=== PATIENT | male | born 1990 | race African-American/Black ===

== ENCOUNTER 2019-12-01 10:51 | Emergency (ER) | payer OTHER ==
[2019-12-01 11:04] VITALS: BP 145/84; RESP 18; TEMP 100.1
[2019-12-01] MEDS ORDERED: SODIUM CHLORIDE 0.9% 1,000 ML IV ONE (11:29)
[2019-12-01] MEDS ORDERED: ACETAMINOPHEN TAB 500 MG TAB PO STA (11:29)
[2019-12-01] MEDS ORDERED: SODIUM CHLORIDE 0.9% 500 ML 500 ML IV ONE (11:29)
[2019-12-01] MEDS ORDERED: LORazepam 2 MG/ML INJ IV STA (11:38)
--- NOTE | 2019-12-01 12:02 | XR ---
EXAMINATION TYPE: XR hand complete RT , 3 VIEWS DATE OF EXAM ORDERED: 12/01/2019 HISTORY: Hand pain. COMPARISON: None. FINDINGS: The IMPRESSION: NO ACUTE OSSEOUS LESION.
[2019-12-01 13:06] LABS: ALT 17 U/L (4-49); AST 35 U/L (17-59); African American GFR (CKD) >90 (>60 ml/min/1.73 sqM); Alcohol <10 mg/dL; Alkaline Phosphatase 118 U/L (38-126); Anion Gap 13 mmol/L; Blood Urea Nitrogen 7 mg/dL (9-20); Calcium 10.3 mg/dL (8.4-10.2); Carbon Dioxide 24 mmol/L (22-30); Chloride 101 mmol/L (98-107); Creatine Kinase 503 U/L (55-170); Glucose 86 mg/dL (74-99); Non-African American GFR(CKD) >90 (>60 ml/min/1.73 sqM); Potassium 4.2 mmol/L (3.5-5.1); Sodium 138 mmol/L (137-145); Total Bilirubin 0.8 mg/dL (0.2-1.3); Total Protein 8.2 g/dL (6.3-8.2)
[2019-12-01 13:08] LABS: Basophils % (A) 0 %; Eosinophils # (A) 0.1 k/uL (0-0.7); Eosinophils % (A) 1 %; HCT 47.5 % (39.0-53.0); HGB 15.5 gm/dL (13.0-17.5); Lymphocytes # (A) 2.3 k/uL (1.0-4.8); Lymphocytes % (A) 23 %; MCH 32.6 pg (25.0-35.0); MCHC 32.7 g/dL (31.0-37.0); MCV 99.7 fL (80.0-100.0); Macrocytosis Slight; Mean Platelet Volume 7.3; Monocytes # (A) 0.6 k/uL (0-1.0); Monocytes % (A) 6 %; Neutrophils # (A) 6.9 k/uL (1.3-7.7); Neutrophils % (A) 68 %; Platelet Count 380 k/uL (150-450); RBC 4.76 m/uL (4.30-5.90); RDW 14.1 % (11.5-15.5); WBC 10.1 k/uL (3.8-10.6)
--- NOTE | 2019-12-01 13:29 | XR ---
EXAMINATION TYPE: XR chest 2V DATE OF EXAM ORDERED: 12/01/2019 HISTORY: Hypoxia; fever. REFERENCE: None. FINDINGS: The lungs are clear. Pleural spaces are clear. Heart size is normal. IMPRESSION: NORMAL CHEST.
--- NOTE | 2019-12-01 14:04 | ED ---
General Adult HPI - General Source: patient Mode of arrival: ambulatory Limitations: no limitations <Tonia Almonte - Last Filed: 12/01/19 15:09> <Irena Mai - Last Filed: 12/02/19 01:15> - General Chief complaint: Recheck/Abnormal Lab/Rx Stated complaint: arm pain Time Seen by Provider: 12/01/19 11:08 - History of Present Illness Initial comments: 29-year-old male patient presents to the emergency department today for evaluation of body aches and right hand pain. Upon arrival patient is acting bizarre and threatening staff. He exhibits flight of ideas. It is difficult to obtain information from him. Patient believes that his right hand may be broken. States he is having difficulty making a fist. He is also reporting body aches and feels ill. He is requesting a computed tomography scan of his entire body. He denies any known fever or chills. Denies any cough or congestion. Denies any rash. He is unsure of any recent injuries. Patient denies any recent rash, shortness of breath, chest pain, abdominal pain, nausea, vomiting, diarrhea, constipation, back pain, numbness, tingling, dizziness, weakness, hematuria, dysuria, urinary urgency, urinary frequency, headache, visual changes, or any other complaints. (Tonia Almonte) - Related Data Home Medications Medication Instructions Recorded Confirmed ARIPiprazole [Abilify] 50 mg INJ QMONTH 01/13/15 01/13/15 Zolpidem Tartrate [Ambien] 5 mg PO HS 01/13/15 01/13/15 clonazePAM [KlonoPIN] 1 mg PO BID 01/13/15 01/13/15 Allergies Allergy/AdvReac Type Severity Reaction Status Date / Time No Known Allergies Allergy Verified 12/01/19 11:04 Review of Systems ROS Other: All systems not noted in ROS Statement are negative. <Tonia Almonte - Last Filed: 12/01/19 15:09> ROS Other: All systems not noted in ROS Statement are negative. <Irena Mai - Last Filed: 12/02/19 01:15> ROS Statement: Those systems with pertinent positive or pertinent negative responses have been documented in the HPI. Past Medical History Additional Past Medical History / Comment(s): depression History of Any Multi-Drug Resistant Organisms: None Reported Additional Past Surgical History / Comment(s): left hand Past Psychological History: Depression, Schizoaffective Disorder, Schizophrenia Smoking Status: Current every day smoker Past Alcohol Use History: Heavy Past Drug Use History: None Reported <Tonia Almonte - Last Filed: 12/01/19 15:09> General Exam Limitations: no limitations General appearance: alert, in no apparent distress, other (This is a well- developed, well-nourished adult male patient in no acute distress. Vital signs upon presentation are temperature 100.1F, pulse 107, respirations 18, blood pressure 145/84, pulse ox 94% on room air.) Eye exam: Present: normal appearance, PERRL, EOMI. Absent: scleral icterus, conjunctival injection, periorbital swelling ENT exam: Present: normal exam, normal oropharynx, mucous membranes moist Respiratory exam: Present: normal lung sounds bilaterally. Absent: respiratory distress, wheezes, rales, rhonchi, stridor Cardiovascular Exam: Present: regular rate, normal rhythm, normal heart sounds. Absent: systolic murmur, diastolic murmur, rubs, gallop, clicks GI/Abdominal exam: Present: soft, normal bowel sounds. Absent: distended, tenderness, guarding, rebound, rigid Neurological exam: Present: alert, oriented X3, CN II-XII intact Psychiatric exam: Present: normal affect, normal mood Skin exam: Present: warm, dry, intact, normal color. Absent: rash <Tonia Almonte - Last Filed: 12/01/19 15:09> Course Vital Signs 12/01/19 12/01/19 10:59 13:46 Temperature 100.1 F H Pulse Rate 107 H 89 Respiratory 18 18 Rate Blood Pressure 145/84 O2 Sat by Pulse 94 L 95 Oximetry Medical Decision Making - Lab Data Result diagrams: 12/01/19 12:25 12/01/19 12:25 - Radiology Data Radiology results: report reviewed, image reviewed <Tonia Almonte - Last Filed: 12/01/19 15:09> - Lab Data Result diagrams: 12/01/19 12:25 12/01/19 12:25 <Irena Mai - Last Filed: 12/02/19 01:15> - Medical Decision Making 29-year-old male patient presented to the emergency department for evaluation. Patient was behaving bizarrely and exhibiting flight of ideas. Was difficult obtaining information from him. He does admit to experiencing with street drugs and drinking alcohol. Physical examination was relatively unremarkable. Lungs are clear to auscultation with good air movement. He is having no difficulty breathing. Labs reviewed and are unremarkable. Drug screen was positive for cocaine and marijuana. Patient was seen and evaluated by psychiatric services. He was given outpatient follow-up and did develop a safety plan. He will be discharged follow-up with his primary care physician and outpatient mental health services as directed. Return parameters were discussed in detail. He verbalizes understanding and agrees with this plan. (Tonia Almonte) I was available for consultation in the emergency department. The history and physical exam were done by the midlevel provider. I was consulted for this patients care. I reviewed the case with the midlevel provider and based on their presentation of the patient, I agree with the assessment, medical decision making and plan of care as documented. Chart was dictated using [employer] dictation software. Attempts were made to correct any dictation errors however some typographical errors may persist. Patient was seen during a national state of emergency due to the Covid-19 pandemic. (Irena Mai) - Lab Data Lab Results 12/01/19 12/01/19 12/01/19 Range/Units 12:25 12:25 12:25 WBC 10.1 (3.8-10.6) k/uL RBC 4.76 (4.30-5.90) m/uL Hgb 15.5 (13.0-17.5) gm/dL Hct 47.5 (39.0-53.0) % MCV 99.7 (80.0-100.0) fL MCH 32.6 (25.0-35.0) pg MCHC 32.7 (31.0-37.0) g/dL RDW 14.1 (11.5-15.5) % Plt Count 380 (150-450) k/uL Neutrophils % 68 % Lymphocytes % 23 % Monocytes % 6 % Eosinophils % 1 % Basophils % 0 % Neutrophils # 6.9 (1.3-7.7) k/uL Lymphocytes # 2.3 (1.0-4.8) k/uL Monocytes # 0.6 (0-1.0) k/uL Eosinophils # 0.1 (0-0.7) k/uL Basophils # 0.0 (0-0.2) k/uL Macrocytosis Slight Sodium 138 (137-145) mmol/L Potassium 4.2 (3.5-5.1) mmol/L Chloride 101 (98-107) mmol/L Carbon Dioxide 24 (22-30) mmol/L Anion Gap 13 mmol/L BUN 7 L (9-20) mg/dL Creatinine 1.03 (0.66-1.25) mg/dL Est GFR (CKD-EPI)AfAm >90 (>60 ml/min/1.73 sqM) Est GFR (CKD-EPI)NonAf >90 (>60 ml/min/1.73 sqM) Glucose 86 (74-99) mg/dL Plasma Lactic Acid Tarun 1.3 (0.7-2.0) mmol/L Calcium 10.3 H (8.4-10.2) mg/dL Total Bilirubin 0.8 (0.2-1.3) mg/dL AST 35 (17-59) U/L ALT 17 (4-49) U/L Alkaline Phosphatase 118 (38-126) U/L Creatine Kinase 503 H (55-170) U/L Total Protein 8.2 (6.3-8.2) g/dL Albumin 5.0 (3.5-5.0) g/dL Urine Color Urine Appearance (Clear) Urine pH (5.0-8.0) Ur Specific [place] (1.001-1.035) Urine Protein (Negative) Urine Glucose (UA) (Negative) Urine Ketones (Negative) Urine Blood (Negative) Urine Nitrite (Negative) Urine Bilirubin (Negative) Urine Urobilinogen (<2.0) mg/dL Ur Leukocyte Esterase (Negative) Urine RBC (0-5) /hpf Urine WBC (0-5) /hpf Ur Squamous Epith Cells (0-4) /hpf Urine Mucus (None) /hpf Urine Opiates Screen (NotDetected) Ur Oxycodone Screen (NotDetected) Urine Methadone Screen (NotDetected) Ur Propoxyphene Screen (NotDetected) Ur Barbiturates Screen (NotDetected) U Tricyclic Antidepress (NotDetected) Ur Phencyclidine Scrn (NotDetected) Ur Amphetamines Screen (NotDetected) U Methamphetamines Scrn (NotDetected) U Benzodiazepines Scrn (NotDetected) Urine Cocaine Screen (NotDetected) U Marijuana (THC) Screen (NotDetected) Serum Alcohol <10 mg/dL 12/01/19 Range/Units 14:08 WBC (3.8-10.6) k/uL RBC (4.30-5.90) m/uL Hgb (13.0-17.5) gm/dL Hct (39.0-53.0) % MCV (80.0-100.0) fL MCH (25.0-35.0) pg MCHC (31.0-37.0) g/dL RDW (11.5-15.5) % Plt Count (150-450) k/uL Neutrophils % % Lymphocytes % % Monocytes % % Eosinophils % % Basophils % % Neutrophils # (1.3-7.7) k/uL Lymphocytes # (1.0-4.8) k/uL Monocytes # (0-1.0) k/uL Eosinophils # (0-0.7) k/uL Basophils # (0-0.2) k/uL Macrocytosis Sodium (137-145) mmol/L Potassium (3.5-5.1) mmol/L Chloride (98-107) mmol/L Carbon Dioxide (22-30) mmol/L Anion Gap mmol/L BUN (9-20) mg/dL Creatinine (0.66-1.25) mg/dL Est GFR (CKD-EPI)AfAm (>60 ml/min/1.73 sqM) Est GFR (CKD-EPI)NonAf (>60 ml/min/1.73 sqM) Glucose (74-99) mg/dL Plasma Lactic Acid [place] (0.7-2.0) mmol/L Calcium (8.4-10.2) mg/dL Total Bilirubin (0.2-1.3) mg/dL AST (17-59) U/L ALT (4-49) U/L Alkaline Phosphatase (38-126) U/L Creatine Kinase (55-170) U/L Total Protein (6.3-8.2) g/dL Albumin (3.5-5.0) g/dL Urine Color Yellow Urine Appearance Clear (Clear) Urine pH 6.0 (5.0-8.0) Ur Specific [place] 1.027 (1.001-1.035) Urine Protein 1+ H (Negative) Urine Glucose (UA) Negative (Negative) Urine Ketones 4+ H (Negative) Urine Blood Trace H (Negative) Urine Nitrite Negative (Negative) Urine Bilirubin Negative (Negative) Urine Urobilinogen <2.0 (<2.0) mg/dL Ur Leukocyte Esterase Small H (Negative) Urine RBC 8 H (0-5) /hpf Urine WBC 11 H (0-5) /hpf Ur Squamous Epith Cells <1 (0-4) /hpf Urine Mucus Moderate H (None) /hpf Urine Opiates Screen Not Detected (NotDetected) Ur Oxycodone Screen Not Detected (NotDetected) Urine Methadone Screen Not Detected (NotDetected) Ur Propoxyphene Screen Not Detected (NotDetected) Ur Barbiturates Screen Not Detected (NotDetected) U Tricyclic Antidepress Detected H (NotDetected) Ur Phencyclidine Scrn Not Detected (NotDetected) Ur Amphetamines Screen Not Detected (NotDetected) U Methamphetamines Scrn Not Detected (NotDetected) U Benzodiazepines Scrn Not Detected (NotDetected) Urine Cocaine Screen Detected H (NotDetected) U Marijuana (THC) Screen Detected H (NotDetected) Serum Alcohol mg/dL - Radiology Data Two-view x-ray of the chest is obtained. Report was reviewed in its entirety. Impression by Dr. Anderson. 3 views of the right hand were obtained. Report was reviewed in its entirety. Impression by Dr. Anderson shows no acute osseous lesion. (Tonia Almonte) Disposition Is patient prescribed a controlled substance at d/c from ED?: No Time of Disposition: 14:04 <Tonia Almonte - Last Filed: 12/01/19 15:09> <Irena Mai - Last Filed: 12/02/19 01:15> Clinical Impression: Fever, Body aches, Right hand pain Disposition: HOME SELF-CARE Condition: Good Instructions (If sedation given, give patient instructions): Fever in Adults (ED), Schizoaffective Disorder (ED) Additional Instructions: Apply ice to the right hand. Follow up with your primary care physician for recheck in 1-2 days. Return to the emergency department immediately for any new, worsening, or concerning symptoms. Referrals: None,Stated [Primary Care Provider] - 1-2 days
[2019-12-01 14:31] LABS: Appearance,Urine Clear (Clear); Bilirubin,Urine Negative (Negative); Blood,Urine Trace (Negative); Color,Urine Yellow; Glucose,Urine (UA) Negative (Negative); Ketones,Urine 4+ (Negative); Leukocyte Esterase,Urine Small (Negative); Mucus,Urine Moderate /hpf; Nitrite,Urine Negative (Negative); Protein,Urine 1+ (Negative); RBC,Urine 8 /hpf (0-5); Specific Gravity,Urine 1.027 (1.001-1.035); Squamous Epithelial Cell,Urine <1 /hpf (0-4); Urobilinogen,Urine <2.0 mg/dL (<2.0); WBC,Urine 11 /hpf (0-5)
[2019-12-01 14:50] LABS: Amphetamine Screen,Urine Not Detected (NotDetected); Barbiturate Screen,Urine Not Detected (NotDetected); Benzodiazepines Screen,Urine Not Detected (NotDetected); Cocaine Screen,Urine Detected (NotDetected); Methadone Screen, Urine Not Detected (NotDetected); Opiate Screen,Urine Not Detected (NotDetected); Oxycodone Screen, Urine Not Detected (NotDetected); Phencyclidine Screen,Urine Not Detected (NotDetected); Tricyclic Antidepressant,Urine Detected (NotDetected); Urn Cannabinoid Scrn Detected (NotDetected)
[2019-12-01 15:23] VITALS: PULSE 89
== END 2019-12-01 14:40 | disposition home or self-care (01) ==
LOC: EC 10:51
DX: M79.641 Pain in right hand (principal); R50.9 Fever, unspecified; F25.1 Schizoaffective disorder, depressive type; F17.200 Nicotine dependence, unspecified, uncomplicated; Z79.899 Other long term (current) drug therapy; Z53.29 Procedure and treatment not carried out because of patient's decision for other reasons
CPT/HCPCS: 36415; 80053; 82550; 83605; 85025; 81001; 87040; 80306; 87086; 73130; 71046; 99283; 96360; G0480; U0003; 80320

== ENCOUNTER 2019-12-07 15:48 | Emergency (ER) | payer OTHER ==
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
[2019-12-07 16:01] VITALS: BP 128/94; PULSE 87; RESP 16; TEMP 99.1
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
[2019-12-07] MEDS ORDERED: ACET/COD 300 MG/30 MG STARTER PACK 6 TAB BTL PO STA (16:48)
[2019-12-07] MEDS ORDERED: IBUPROFEN 600 MG STARTER PACK 4 TAB BTL PO STA (16:48)
== END 2019-12-07 17:05 | disposition home or self-care (01) ==
LOC: EC 15:48
DX: S00.83XA Contusion of other part of head, initial encounter (principal); T74.11XA Adult physical abuse, confirmed, initial encounter; F32.9 Major depressive disorder, single episode, unspecified; F25.9 Schizoaffective disorder, unspecified; F17.200 Nicotine dependence, unspecified, uncomplicated; Z79.899 Other long term (current) drug therapy; Y92.89 Other specified places as the place of occurrence of the external cause; Y07.9 Unspecified perpetrator of maltreatment and neglect
CPT/HCPCS: 70450; 70486; 72125; 99284

== ENCOUNTER 2022-09-20 21:22 | Emergency (ER) | payer OTHER ==
[2022-09-20 22:08] VITALS: BP 152/96; PULSE 77; RESP 20; TEMP 98.2
[2022-09-20] MEDS ORDERED: KETOROLAC 15 MG/ML 1 ML VIAL IM STA (22:19)
[2022-09-20] MEDS ORDERED: PENICILLIN V POTASSIUM 250 MG TAB PO STA (22:19)
--- NOTE | 2022-09-20 22:22 | ED ---
ENT HPI - General Chief complaint: Dental/Oral Stated complaint: Dental pain Time Seen by Provider: 09/20/22 22:12 Source: patient Mode of arrival: ambulatory Limitations: no limitations - History of Present Illness Initial comments: Patient is a 32-year-old male presenting with chief complaint of dental pain. Patient has known dental fracture to the left lower side. Pain has been increasing over several weeks. Patient is currently homeless and going between several homeless shelters. No difficulty swallowing, nausea, vomiting, headache, neck pain, difficulty breathing. Patient also admits to bilateral feet pain, states it is due to frequent walking due to this housing situation. No numbness, tingling, weakness, injury. - Related Data Home Medications Medication Instructions Recorded Confirmed ARIPiprazole [Abilify] 50 mg INJ QMONTH 01/13/15 01/13/15 Zolpidem Tartrate [Ambien] 5 mg PO HS 01/13/15 01/13/15 clonazePAM [KlonoPIN] 1 mg PO BID 01/13/15 01/13/15 Previous Rx's Medication Instructions Recorded Ibuprofen [Motrin] 400 mg PO Q6HR PRN #20 tab 09/20/22 Penicillin V Potassium [Pen Vee K] 500 mg PO QID 7 Days #28 tablet 09/20/22 Allergies Allergy/AdvReac Type Severity Reaction Status Date / Time aripiprazole [From Abilify] AdvReac Unknown Verified 09/20/22 22:09 haloperidol [From Haldol] AdvReac Unknown Verified 09/20/22 22:09 paliperidone [From Invega] AdvReac Unknown Verified 09/20/22 22:09 Review of Systems ROS Statement: Those systems with pertinent positive or pertinent negative responses have been documented in the HPI. ROS Other: All systems not noted in ROS Statement are negative. Past Medical History Additional Past Medical History / Comment(s): depression, former alcoholic History of Any Multi-Drug Resistant Organisms: None Reported Additional Past Surgical History / Comment(s): left hand Past Psychological History: Depression, Schizoaffective Disorder, Schizophrenia Smoking Status: Former smoker Past Alcohol Use History: None Reported Past Drug Use History: None Reported General Exam Limitations: no limitations General appearance: alert, in no apparent distress Head exam: Present: atraumatic, normocephalic, normal inspection Eye exam: Present: normal appearance, EOMI. Absent: periorbital swelling Expanded Mouth exam: Present: normal external inspection, tongue normal. Absent: drooling, trismus, muffled voice Teeth exam: Present: fractured tooth # Throat exam: normal inspection Neck exam: Present: normal inspection, full ROM Respiratory exam: Present: normal lung sounds bilaterally. Absent: respiratory distress, wheezes, rales, rhonchi, stridor Cardiovascular Exam: Present: regular rate, normal rhythm, normal heart sounds. Absent: systolic murmur, diastolic murmur, rubs, gallop, clicks Neurological exam: Present: alert, oriented X3, CN II-XII intact Psychiatric exam: Present: normal affect, normal mood Skin exam: Present: warm, dry, intact, normal color. Absent: rash Course Vital Signs 09/20/22 21:59 Temperature 98.2 F Pulse Rate 77 Respiratory 20 Rate Blood Pressure 152/96 O2 Sat by Pulse 98 Oximetry Medical Decision Making - Medical Decision Making Was pt. sent in by a medical professional or institution (, PA, ENVIRONMENTAL DIRECTOR, urgent care, hospital, or longterm...) When possible be specific @ -No Did you speak to anyone other than the patient for history (EMS, parent, family, police, friend...)? What history was obtained from this source @ -No Did you review nursing and triage notes (agree or disagree)? Why? @ -I reviewed and agree with nursing and triage notes Were old charts reviewed (outside hosp., previous admission, EMS record, old EKG, old radiological studies, urgent care reports/EKG's, longterm records)? Report findings @ -No old charts were reviewed Differential Diagnosis (chest pain, altered mental status, abdominal pain women, abdominal pain men, vaginal bleeding, weakness, fever, dyspnea, syncope, headache, dizziness, GI bleed, back pain, seizure, CVA, palpatations, mental health, musculoskeletal)? @ -Differential includes toothache, dental abscess, Cesar's angina, this is not an all inclusive list EKG interpreted by me (3pts min.). @ -As above X-rays interpreted by me (1pt min.). @ -None done CT interpreted by me (1pt min.). @ -None done U/S interpreted by me (1pt. min.). @ -None done What testing was considered but not performed or refused? (CT, X-rays, U/S, labs)? Why? @ -None What meds were considered but not given or refused? Why? @ -None Did you discuss the management of the patient with other professionals (professionals i.e. , PA, ENVIRONMENTAL DIRECTOR, lab, RT, psych nurse, social media marketer, dedenter, teacher, police commanding officer, case sealer)? Give summary @ -No Was smoking cessation discussed for >3mins.? @ -No Was critical care preformed (if so, how long)? @ -No Were there social determinants of health that impacted care today? How? (Homelessness, low income, unemployed, alcoholism, drug addiction, transportation, low edu. Level, literacy, decrease access to med. care, snf, rehab)? @ -Homelessness Was there de-escalation of care discussed even if they declined (Discuss DNR or withdrawal of care, Hospice)? DNR status @ -No What co-morbidities impacted this encounter? (DM, HTN, Smoking, COPD, CAD, Cancer, CVA, ARF, Chemo, Hep., AIDS, mental health diagnosis, sleep apnea, morbid obesity)? @ -None Was patient admitted / discharged? Hospital course, mention meds given and route, prescriptions, significant lab abnormalities, going to OR and other pertinent info. @ -Patient is a 32-year-old male presenting with chief complaint of dental pain. Patient is currently homeless. On physical examination there is some dental tenderness on the left lower side. No trismus or brawny induration. Due to the patient's social situation we will treat for potential early abscess. Patient will be started on penicillin VK and is provided with a prescription for ibuprofen. He is instructed [facility]. Follow-up with PCP. Report back to ER with any new or worsening symptoms. Discussed return parameters and answered all questions. Patient conveyed verbal understanding and agreed to the plan. I discussed this case in detail with my attending Dr. Sorenson Undiagnosed new problem with uncertain prognosis? @ -No Drug Therapy requiring intensive monitoring for toxicity (Heparin, Nitro, Insulin, Cardizem)? @ -No Were any procedures done? @ -No Diagnosis/symptom? @ -Dental abscess Acute, or Chronic, or Acute on Chronic? @ -Acute Uncomplicated (without systemic symptoms) or Complicated (systemic symptoms)? @ -Uncomplicated Side effects of treatment? @ -No Exacerbation, Progression, or Severe Exacerbation? @ -No Poses a threat to life or bodily function? How? (Chest pain, [place], MT, pneumonia, PE, COPD, DKA, ARF, appy, cholecystitis, CVA, Diverticulitis, Homicidal, Suicidal, threat to staff... and all critical care pts) @ -No Disposition Clinical Impression: Dental abscess Disposition: HOME SELF-CARE Condition: Good Instructions (If sedation given, give patient instructions): Dental Abscess (ED) Additional Instructions: Follow-up with dental clinic. Report back to ER with any new or worsening symptoms. Please follow up with the [facility] dental clinic. [facility] [place] [address]. Phone number for new patients or [phone] for existing patients. Prescriptions: Ibuprofen [Motrin] 400 mg PO Q6HR PRN #20 tab PRN Reason: Pain Penicillin V Potassium [Pen Vee K] 500 mg PO QID 7 Days #28 tablet Is patient prescribed a controlled substance at d/c from ED?: No Referrals: None,Stated [REFERRING] - 1-2 days Time of Disposition: 22:22
== END 2022-09-20 23:07 | disposition home or self-care (01) ==
LOC: EC 21:22
DX: K04.7 Periapical abscess without sinus (principal); F20.9 Schizophrenia, unspecified; F32.A Depression, unspecified; Z87.891 Personal history of nicotine dependence; Z79.899 Other long term (current) drug therapy; Z59.00 Homelessness unspecified; Z88.8 Allergy status to other drugs, medicaments and biological substances
CPT/HCPCS: 99283; 96372; J1885

== ENCOUNTER 2022-09-21 19:42 | Emergency (ER) | payer OTHER ==
[2022-09-21] MEDS ORDERED: HYDROCORTISONE 1% CREAM 30 GM TUBE TOPICAL ONE (21:00)
[2022-09-21] MEDS ORDERED: methylPREDNISolone SOD SUCCI 125 MG/2 ML VIAL IM ONE (21:00)
--- NOTE | 2022-09-21 21:15 | ED ---
Skin/Abscess/FB HPI - General Chief complaint: Skin/Abscess/Foreign Body Stated complaint: allergic reaction Time Seen by Provider: 09/21/22 20:14 Source: patient, RN notes reviewed Mode of arrival: ambulatory Limitations: no limitations - History of Present Illness Initial comments: This is a 32-year-old male who presents to the emergency department for a rash that he attributes to pollen exposure and concerns of possible razor burn. This morning, he started to develop redness and tearing of his eyes and a rash and itching around his nose. States that this is what typically happens when he has an allergic reaction to pollen. Additionally, states that he just started using a razor believes that he is getting razor burn around his cheeks and marinelli. Denies any history razor burn. He was just evaluated here yesterday for dental pain and started on pen VK and ibuprofen. Denies any history of allergies to penicillin in the past. Additionally, he inquired about starting nicotine gum for nicotine dependence, states that he is unsure how to take this or where to find it. Denies any fevers, chills, sore throat, cough, dyspnea, chest pain, palpitations, abdominal pain, nausea, vomiting, diarrhea, back pain, or headaches. MD complaint: rash - Related Data Home Medications Medication Instructions Recorded Confirmed ARIPiprazole [Abilify] 50 mg INJ QMONTH 01/13/15 01/13/15 Zolpidem Tartrate [Ambien] 5 mg PO HS 01/13/15 01/13/15 clonazePAM [KlonoPIN] 1 mg PO BID 01/13/15 01/13/15 Previous Rx's Medication Instructions Recorded Ibuprofen [Motrin] 400 mg PO Q6HR PRN #20 tab 09/20/22 Penicillin V Potassium [Pen Vee K] 500 mg PO QID 7 Days #28 tablet 09/20/22 Ketotifen 0.025% Ophth Soln 1 drop BOTH EYES BID #5 ml 09/21/22 [Zaditor] Nicotine Gum (Polacrilex) 2 mg BUCCAL Q2H #100 piece gum 09/21/22 [Nicorette] Allergies Allergy/AdvReac Type Severity Reaction Status Date / Time aripiprazole [From Abilify] AdvReac Unknown Verified 09/21/22 20:04 haloperidol [From Haldol] AdvReac Unknown Verified 09/21/22 20:04 paliperidone [From Invega] AdvReac Unknown Verified 09/21/22 20:04 Review of Systems ROS Statement: Those systems with pertinent positive or pertinent negative responses have been documented in the HPI. ROS Other: All systems not noted in ROS Statement are negative. Past Medical History Additional Past Medical History / Comment(s): depression, former alcoholic History of Any Multi-Drug Resistant Organisms: None Reported Additional Past Surgical History / Comment(s): left hand Past Psychological History: Depression, Schizoaffective Disorder, Schizophrenia Smoking Status: Former smoker Past Alcohol Use History: None Reported Past Drug Use History: None Reported General Exam Limitations: no limitations General appearance: alert, in no apparent distress Head exam: Present: atraumatic, normocephalic, normal inspection Eye exam: Present: other (Mild bilateral conjunctival injection) Respiratory exam: Present: normal lung sounds bilaterally. Absent: respiratory distress, wheezes, rales, rhonchi, stridor Cardiovascular Exam: Present: regular rate, normal rhythm, normal heart sounds. Absent: systolic murmur, diastolic murmur, rubs, gallop, clicks Neurological exam: Present: alert, oriented X3, CN II-XII intact Psychiatric exam: Present: normal affect, normal mood Skin exam: Present: other (Mild bumps around the patient's cheeks and marinelli suggestive of a pseudofolliculitis barbae.) Course Vital Signs 09/21/22 09/21/22 20:04 21:34 Temperature 98.2 F 97.7 F Pulse Rate 106 H 97 Respiratory 16 17 Rate Blood Pressure 131/87 140/83 O2 Sat by Pulse 95 96 Oximetry Medical Decision Making - Medical Decision Making This is a 32-year-old male who presents to the emergency department for a rash. Was pt. sent in by a medical professional or institution? @ -No Did you speak to anyone other than the patient for history? @ -No Did you review nursing and triage notes? @ -Yes, and I agree, it is accurate with regards to the patient's symptoms. Were old charts reviewed? @ -No Differential Diagnosis? @ -Differential Rash: Roseola, measles, Lyme disease, erythema multiforme, cellulitis, toxic shock syndrome, Herson Iraj syndrome, Kawasaki disease, annette mountain spotted fever, contact dermatitis, allergic dermatitis, measles, mumps, rubella, varicella, meningococcal disease, drug reaction, coxsackievirus, This is not meant to be an all-inclusive list. What testing was considered but not performed? (CT, X-rays, U/S, labs)? Why? @ -None What meds were considered but not given? Why? @ -None Did you discuss the management of the patient with other professionals? @ -No Did you reconcile home meds? @ -No Was smoking cessation discussed for >3mins.? @ -I discussed smoking cessation for greater than 3 minutes. The risk of s moking were discussed with the patient including but not limited to risks of cancer, stroke, coronary artery disease and COPD. Also discussed with patient were multiple methods of quitting smoking. Lastly we discussed the financial cost of smoking. Was critical care preformed (if so, how long)? @ -No Were there social determinants of health that impacted care today? How? (Homelessness, low income, unemployed, alcoholism, drug addiction, transportation, low edu. Level, literacy, decrease access to med. care, correction, rehab)? @ -Patient is homeless, decreasing his access to healthcare and contributing to overall worsening health status. It is also difficult for him to find transportation and get to the pharmacy to strip picker his medication. Was there de-escalation of care discussed even if they declined? (Discuss DNR or withdrawal of care, Hospice)? @ -No What co-morbidities impacted this encounter? (DM, HTN, Smoking, COPD, CAD, Cancer, CVA, Hep., AIDS, mental health diagnosis, sleep apnea, morbid obesity)? @ -Tobacco use Was patient admitted / discharged? @ -Discharged. Physical examination consistent with allergic conjunctivitis and potential dermatitis on areas of the face. 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 He was given IM Solu- Medrol and hydrocortisone cream in the emergency department. Prescription for antihistamine eyedrops and Nicorette gum provided with dosing instructions reviewed. With regards to the gum, he is instructed to take 1 piece every 1-2 hours for 6 weeks, then every 2-4 hours for 3 weeks, followed by every 4-8 hours for 3 weeks, and then stop. He is advised to avoid having more than 24 pieces in a day. Instructed him to purchase this [id number] when he runs out of the prescription. He is also instructed to stop smoking when he starts to take this. With regards to the hydrocortisone cream, he is instructed to apply this 2-3 times daily to the affected areas on his face. He is also instructed to avoid using this for more than 5-7 days and to start using shaving cream or purchase an electric razor to reduce the risk of future recurrence. Undiagnosed new problem with uncertain prognosis? @ -None Drug Therapy requiring intensive monitoring for toxicity (Heparin, Nitro, Insulin, Cardizem)? @ -None Were any procedures done? @ -None Diagnosis/symptom? @ -Allergic conjunctivitis, pseudofolliculitis barbae Acute, or Chronic, or Acute on Chronic? @ -Acute Uncomplicated (without systemic symptoms) or Complicated (systemic symptoms)? @ -Uncomplicated Side effects of treatment? @ -None Exacerbation, Progression, or Severe Exacerbation] @ -Not applicable Poses a threat to life or bodily function? @ -No Diagnosis/symptom? @ -Nicotine dependence Acute, or Chronic, or Acute on Chronic? @ -Acute Uncomplicated (without systemic symptoms) or Complicated (systemic symptoms)? @ -Uncomplicated Side effects of treatment? @ -None Exacerbation, Progression, or Severe Exacerbation] @ -Stable Poses a threat to life or bodily function? @ -Yes, this increases risk for lung cancer, heart attacks, and strokes if he continues to smoke. Return precautions reviewed in depth, the patient is instructed to return to the emergency department with any new, worsening, or concerning symptoms. Patient verbalized understanding. This case was discussed in detail with the attending ED physician, Dr. Johnson. Presentation, findings, and treatment plan discussed in detail as well. Disposition Clinical Impression: Pseudofolliculitis barbae, Nicotine dependence, Allergic conjunctivitis Disposition: HOME SELF-CARE Instructions (If sedation given, give patient instructions): Nicotine (Into the mouth), Conjunctivitis (ED) Additional Instructions: Return to the emergency department with any new, worsening, or concerning symptoms. You will take the nicotine gum as 1 piece every 1-2 hours for 6 weeks (at least 9 pieces a day), then every 2-4 hours for 3 weeks, then every 4-8 hours for 3 weeks, then stop. Do not have more than 24 pieces a day. You can purchase this [id number] when you run out of the prescription. Make sure that you stop smoking when you start taking this. Use the eyedrops as one drop in each eye twice daily. You can apply the hydrocortisone cream around the marinelli and face twice daily to help with the bumps and itching. Follow up with your primary care provider in 1-2 days. Prescriptions: Nicotine Gum (Polacrilex) [Nicorette] 2 mg BUCCAL Q2H #100 piece gum Ketotifen 0.025% Ophth Soln [Zaditor] 1 drop BOTH EYES BID #5 ml Is patient prescribed a controlled substance at d/c from ED?: No Referrals: None,Stated [Primary Care Provider] - 1-2 days
[2022-09-21 21:34] VITALS: BP 140/83; PULSE 97; RESP 17; TEMP 97.7
== END 2022-09-21 21:34 | disposition home or self-care (01) ==
LOC: EC 19:42
DX: L73.1 Pseudofolliculitis barbae (principal); F17.290 Nicotine dependence, other tobacco product, uncomplicated; H10.13 Acute atopic conjunctivitis, bilateral; F32.A Depression, unspecified; Z88.8 Allergy status to other drugs, medicaments and biological substances; Z79.899 Other long term (current) drug therapy
CPT/HCPCS: 99283; 96372; J2930

== ENCOUNTER 2022-09-22 22:29 | Emergency (ER) | payer OTHER ==
[2022-09-22 22:48] VITALS: BP 151/89; PULSE 105; RESP 22; TEMP 98.2
[2022-09-22] MEDS ORDERED: KETOROLAC 15 MG/ML 1 ML VIAL IM STA (23:26)
[2022-09-22] MEDS ORDERED: HYDROcodone/APAP 5-325MG 1 EACH TAB PO STA (23:26)
--- NOTE | 2022-09-22 23:44 | ED ---
Upper Extremity HPI - General Chief Complaint: Extremity Injury, Upper Stated Complaint: R hand injury Time Seen by Provider: 09/22/22 22:34 Source: patient, RN notes reviewed Mode of arrival: ambulatory Limitations: no limitations - History of Present Illness Initial Comments: This is a 32-year-old male who presents to the emergency department for a right hand injury. Patient states that he got mad earlier today and punched a wall. His girlfriend just got a puppy and it ran away. States that he was unable to find it and he became frustrated and subsequently punched a brick wall. He has not taken anything for the pain. He is still able to move the hand, but states that it is painful. Denies any fevers, chills, sore throat, cough, dyspnea, chest pain, palpitations, abdominal pain, nausea, vomiting, diarrhea, back pain, or headaches. MD Complaint: Injury to:: right, hand - Related Data Home Medications Medication Instructions Recorded Confirmed ARIPiprazole [Abilify] 50 mg INJ QMONTH 01/13/15 01/13/15 Zolpidem Tartrate [Ambien] 5 mg PO HS 01/13/15 01/13/15 clonazePAM [KlonoPIN] 1 mg PO BID 01/13/15 01/13/15 Previous Rx's Medication Instructions Recorded Ibuprofen [Motrin] 400 mg PO Q6HR PRN #20 tab 09/20/22 Penicillin V Potassium [Pen Vee K] 500 mg PO QID 7 Days #28 tablet 09/20/22 Ketotifen 0.025% Ophth Soln 1 drop BOTH EYES BID #5 ml 09/21/22 [Zaditor] Nicotine Gum (Polacrilex) 2 mg BUCCAL Q2H #100 piece gum 09/21/22 [Nicorette] Allergies Allergy/AdvReac Type Severity Reaction Status Date / Time aripiprazole [From Abilify] AdvReac Unknown Verified 09/22/22 22:49 haloperidol [From Haldol] AdvReac Unknown Verified 09/22/22 22:49 paliperidone [From Invega] AdvReac Unknown Verified 09/22/22 22:49 Review of Systems ROS Statement: Those systems with pertinent positive or pertinent negative responses have been documented in the HPI. ROS Other: All systems not noted in ROS Statement are negative. Past Medical History Past Medical History: GERD/Reflux Additional Past Medical History / Comment(s): depression, former alcoholic History of Any Multi-Drug Resistant Organisms: None Reported Additional Past Surgical History / Comment(s): left hand Past Psychological History: Depression, Schizoaffective Disorder, Schizophrenia Smoking Status: Former smoker Past Alcohol Use History: None Reported Past Drug Use History: None Reported General Exam Limitations: no limitations General appearance: alert, in no apparent distress Head exam: Present: atraumatic, normocephalic, normal inspection Respiratory exam: Present: normal lung sounds bilaterally. Absent: respiratory distress, wheezes, rales, rhonchi, stridor Cardiovascular Exam: Present: regular rate, normal rhythm, normal heart sounds. Absent: systolic murmur, diastolic murmur, rubs, gallop, clicks Extremities exam: Present: other (Tenderness and minor swelling near the fourth MCP joint of the right hand. Full active and passive range of motion of all 5 digits.) Neurological exam: Present: alert, oriented X3, CN II-XII intact Psychiatric exam: Present: normal affect, normal mood Skin exam: Present: warm, dry, intact, normal color. Absent: rash Course Vital Signs 09/22/22 22:43 Temperature 98.2 F Pulse Rate 105 H Respiratory 22 Rate Blood Pressure 151/89 O2 Sat by Pulse 97 Oximetry Medical Decision Making - Medical Decision Making This is a 32-year-old male who presents to the emergency department for a right hand injury. Was pt. sent in by a medical professional or institution? @ -No Did you speak to anyone other than the patient for history? @ -No Did you review nursing and triage notes? @ -Yes, and I agree, it is accurate with regards to the patient's symptoms. Were old charts reviewed? @ -No Differential Diagnosis? @ -Differential hand pain/injury: Fracture, dislocation, contusion, this is not meant to be an all-inclusive list. X-rays interpreted by me (1pt min.)? @ -X-ray of the right hand obtained. My interpretation identifies no acute fractures. What testing was considered but not performed? (CT, X-rays, U/S, labs)? Why? @ -None What meds were considered but not given? Why? @ -None Did you discuss the management of the patient with other professionals? @ -No Did you reconcile home meds? @ -No Was smoking cessation discussed for >3mins.? @ -No Was critical care preformed (if so, how long)? @ -No Were there social determinants of health that impacted care today? How? (Homelessness, low income, unemployed, alcoholism, drug addiction, transportation, low edu. Level, literacy, decrease access to med. care, shelter, rehab)? @ -No Was there de-escalation of care discussed even if they declined? (Discuss DNR or withdrawal of care, Hospice)? @ -No What co-morbidities impacted this encounter? (DM, HTN, Smoking, COPD, CAD, Cancer, CVA, Hep., AIDS, mental health diagnosis, sleep apnea, morbid obesity)? @ -None Was patient admitted / discharged? @ -Discharged. X-ray of the right hand obtained revealing no acute injury. He does however have a chronic deformity of the right third metacarpal head. Patient given IM Toradol for pain relief. He inquired about a referral to orthopedics for unclear reasons. I did give him information for the local orthopedics office, and I advised that he will need to explain to them the reason for needing an appointment when he calls the office. He did also request a copy of his imaging, and a disc was made and given to the patient. He is instructed to alternate with ibuprofen and tylenol for pain relief and apply ice to the areas of pain for 10-15 minutes every 2-3 hours for the first 2-3 days followed by heat there afterwards. Undiagnosed new problem with uncertain prognosis? @ -None Drug Therapy requiring intensive monitoring for toxicity (Heparin, Nitro, Insulin, Cardizem)? @ -None Were any procedures done? @ -None Diagnosis/symptom? @ -Right hand injury Acute, or Chronic, or Acute on Chronic? @ -Acute Uncomplicated (without systemic symptoms) or Complicated (systemic symptoms)? @ -Uncomplicated Side effects of treatment? @ -None Exacerbation, Progression, or Severe Exacerbation] @ -Not applicable Poses a threat to life or bodily function? @ -No Return precautions reviewed in depth, the patient is instructed to return to the emergency department with any new, worsening, or concerning symptoms. Patient verbalized understanding. This case was discussed in detail with the attending ED physician, Dr. Maldonado. Presentation, findings, and treatment plan discussed in detail as well. - Radiology Data Radiology results: report reviewed, image reviewed Disposition Clinical Impression: Injury of right hand, Deformity of metacarpal bone Disposition: HOME SELF-CARE Instructions (If sedation given, give patient instructions): Hand Sprain (ED), Crush Injury (ED) Additional Instructions: Return to the emergency department with any new, worsening, or concerning symptoms. Alternate with ibuprofen and Tylenol as needed for pain relief. Apply ice for 10-15 minutes every 2-3 hours. Contact orthopedics as listed below for a follow-up appointment. Follow up with your primary care provider in 1-2 days. Is patient prescribed a controlled substance at d/c from ED?: No Referrals: None,Stated [Primary Care Provider] - 1-2 days Padilla Burton DO [Doctor of Osteopathic Medicine] - 1-2 days
--- NOTE | 2022-09-23 00:12 | XR ---
EXAMINATION TYPE: XR hand complete RT DATE OF EXAM: 09/22/2022 11:41 PM INDICATION: Patient age:Male; 32 years old; Reason for study: Injury; COMPARISON: 12/01/2019 TECHNIQUE: Frontal, lateral and oblique views of the right hand were obtained. FINDINGS: There is redemonstration of deformity of the third metacarpal head similar to 2019. No evid ence of new fracture involving the third digit. The osseous structures of the wrist appear intact. IMPRESSION: Right third metacarpal head injury with associated degeneration. No obvious acute fracture.
[2022-09-23] MEDS ORDERED: ACET/COD 300 MG/30 MG STARTER PACK 6 TAB BTL PO STA (00:20)
[2022-09-23] MEDS ORDERED: IBUPROFEN 600 MG STARTER PACK 4 TAB BTL PO STA (00:20)
== END 2022-09-23 00:31 | disposition home or self-care (01) ==
LOC: EC 22:29
DX: S69.91XA Unspecified injury of right wrist, hand and finger(s), initial encounter (principal); S09.90XA Unspecified injury of head, initial encounter; M21.941 Unspecified acquired deformity of hand, right hand; F32.A Depression, unspecified; Z88.6 Allergy status to analgesic agent; Z88.8 Allergy status to other drugs, medicaments and biological substances; Z87.891 Personal history of nicotine dependence; W22.8XXA Striking against or struck by other objects, initial encounter
CPT/HCPCS: 96372; 99283

== ENCOUNTER 2022-09-23 04:50 | Emergency (ER) | payer OTHER ==
[2022-09-23 05:10] VITALS: BP 141/89; PULSE 91; RESP 18; TEMP 97.9
[2022-09-23] MEDS ORDERED: MAG HYDROX/AL HYDROX/SIMETH 30 ML, HYOSCYAMINE ELIXIR 10 ML, LIDOCAINE VISCOUS 2% 10 ML PO STA ×3 (05:15)
--- NOTE | 2022-09-23 05:25 | ED ---
General Adult HPI - General Chief complaint: Abdominal Pain Stated complaint: acid reflux/burning in chest Time Seen by Provider: 09/23/22 04:51 Source: patient, RN notes reviewed, old records reviewed Mode of arrival: ambulatory Limitations: no limitations - History of Present Illness Initial comments: Patient is a 32-year-old male who has presented to the emergency department multiple times over the last few days for different complaints. Presents today complaining of acid reflux. Has a history of acid reflux. Endorses a burning sensation in his abdomen. States he had tomato sauce earlier which he believes is what caused it. Attempted use Tums at home with minimal improvement. Also attempted Pepto-Bismol. Presents for further evaluation at this time. Denies any nausea. Denies diarrhea. Denies any fevers, chills, cough, shortness of breath. Denies any other acute complaints. Has no history of cardiac disease. Presents for further evaluation at this time. - Related Data Home Medications Medication Instructions Recorded Confirmed ARIPiprazole [Abilify] 50 mg INJ QMONTH 01/13/15 01/13/15 Zolpidem Tartrate [Ambien] 5 mg PO HS 01/13/15 01/13/15 clonazePAM [KlonoPIN] 1 mg PO BID 01/13/15 01/13/15 Previous Rx's Medication Instructions Recorded Ibuprofen [Motrin] 400 mg PO Q6HR PRN #20 tab 09/20/22 Penicillin V Potassium [Pen Vee K] 500 mg PO QID 7 Days #28 tablet 09/20/22 Ketotifen 0.025% Ophth Soln 1 drop BOTH EYES BID #5 ml 09/21/22 [Zaditor] Nicotine Gum (Polacrilex) 2 mg BUCCAL Q2H #100 piece gum 09/21/22 [Nicorette] Famotidine [Pepcid] 10 mg PO DAILY 7 Days #7 tab 09/23/22 Allergies Allergy/AdvReac Type Severity Reaction Status Date / Time aripiprazole [From Abilify] AdvReac Unknown Verified 09/23/22 05:07 haloperidol [From Haldol] AdvReac Unknown Verified 09/23/22 05:07 paliperidone [From Invega] AdvReac Unknown Verified 09/23/22 05:07 Review of Systems ROS Statement: Those systems with pertinent positive or pertinent negative responses have been documented in the HPI. Review of Systems: CONST: Denies fever EYES: Denies blurry vision ENT: Denies nasal congestion C/V: Denies Chest pain RESP: Denies shortness of breath GI: Endorses acid reflux pain : Denies dysuria SKIN: Denies rash. MSK: Denies joint pain. NEURO: Denies headache ROS Other: All systems not noted in ROS Statement are negative. Past Medical History Past Medical History: GERD/Reflux Additional Past Medical History / Comment(s): depression, former alcoholic History of Any Multi-Drug Resistant Organisms: None Reported Additional Past Surgical History / Comment(s): left hand Past Psychological History: Depression, Schizoaffective Disorder, Schizophrenia Smoking Status: Former smoker Past Alcohol Use History: None Reported Past Drug Use History: None Reported General Exam - General Exam Comments Initial Comments: General: Appears in no acute distress. HEAD: Normal with no signs of head trauma. EYES: EOMI. ENT: Hearing grossly intact. RESPIRATORY: No respiratory distress. Equal breath sounds bilaterally. No re spiratory distress. C/V: Regular rate and rhythm. S1 and S2 auscultated. Peripheral pulses 2+ and intact throughout. ABD: Abdomen is nondistended. No pain on palpation. EXT: No obvious deformity. SKIN: No rashes or lesions observed on exposed skin. NEURO: Alert and oriented. Limitations: no limitations Course Vital Signs 09/23/22 05:07 Temperature 97.9 F Pulse Rate 91 Respiratory 18 Rate Blood Pressure 141/89 O2 Sat by Pulse 98 Oximetry Medical Decision Making - Medical Decision Making Was pt. sent in by a medical professional or institution (, PA, MANAGER EMERGENCY DEPARTMENT, urgent care, hospital, or halfway...) When possible be specific @ -No Did you speak to anyone other than the patient for history (EMS, parent, family, police, friend...)? What history was obtained from this source @ -No Did you review nursing and triage notes (agree or disagree)? Why? @ -I reviewed and agree with nursing and triage notes Were old charts reviewed (outside hosp., previous admission, EMS record, old EKG, old radiological studies, urgent care reports/EKG's, halfway records)? Report findings @ -No old charts were reviewed Differential Diagnosis (chest pain, altered mental status, abdominal pain women, abdominal pain men, vaginal bleeding, weakness, fever, dyspnea, syncope, headache, dizziness, GI bleed, back pain, seizure, CVA, palpatations, mental health, musculoskeletal)? @ -Acid reflux, pneumothorax, musculoskeletal pain, this list is not all- inclusive EKG interpreted by me (3pts min.). @ -As above X-rays interpreted by me (1pt min.). @ -Chest x-ray reveals no obvious acute cardiopulmonary process. CT interpreted by me (1pt min.). @ -None done U/S interpreted by me (1pt. min.). @ -None done What testing was considered but not performed or refused? (CT, X-rays, U/S, labs)? Why? @ -None What meds were considered but not given or refused? Why? @ -None Did you discuss the management of the patient with other professionals (professionals i.e. , PA, MANAGER EMERGENCY DEPARTMENT, lab, RT, psych nurse, social director, switchboard operator supervisor, teacher, sea air land officer, housing case manager)? Give summary @ -No Was smoking cessation discussed for >3mins.? @ -No Was critical care preformed (if so, how long)? @ -No Were there social determinants of health that impacted care today? How? (Homelessness, low income, unemployed, alcoholism, drug addiction, transportation, low edu. Level, literacy, decrease access to med. care, nursing home, rehab)? @ -No Was there de-escalation of care discussed even if they declined (Discuss DNR or withdrawal of care, Hospice)? DNR status @ -No What co-morbidities impacted this encounter? (DM, HTN, Smoking, COPD, CAD, Cancer, CVA, ARF, Chemo, Hep., AIDS, mental health diagnosis, sleep apnea, morbid obesity)? @ -None Was patient admitted / discharged? Hospital course, mention meds given and route, prescriptions, significant lab abnormalities, going to OR and other pertinent info. @ -Based on the patient's presentation and physical exam, presents complaining of acid reflux. Has a history of acid reflux. States is normal times and Pepto-Bismol are not improving his symptoms. Presents for further evaluation at this time. Vital signs are within acceptable limits. Discuss with him we will obtain screening EKG, chest x-ray and symptomatically treat him with a GI cocktail. He was in agreement this plan. Workup returned unremarkable. We discussed. Patient is feeling improved. He'll be discharged home at this time. We'll provide him with a prescription for Pepcid. I will provide the patient with a prescription for Pepcid. I instructed the patient to follow up with their PCP in the next 1-3 days. I provided contact information for follow up with GI. I explained that the patient should return to the emergency department if they experience any worsening symptoms. Strict return precautions were discussed with the patient. The patient expressed understanding of these instructions. I answered all questions that the patient had. The patient was discharged home in good condition with their prescriptions and follow up information. Undiagnosed new problem with uncertain prognosis? @ -No Drug Therapy requiring intensive monitoring for toxicity (Heparin, Nitro, Insulin, Cardizem)? @ -No Were any procedures done? @ -No Diagnosis/symptom? @ -GERD Acute, or Chronic, or Acute on Chronic? @ -Acute on chronic Uncomplicated (without systemic symptoms) or Complicated (systemic symptoms)? @ -Uncomplicated Side effects of treatment? @ -No Exacerbation, Progression, or Severe Exacerbation? @ -No Poses a threat to life or bodily function? How? (Chest pain, [place], CT, pneumonia, PE, COPD, DKA, ARF, appy, cholecystitis, CVA, Diverticulitis, Homicidal, Suicidal, threat to staff... and all critical care pts) @ -No - EKG Data -: EKG Interpreted by Me EKG Comments: 12-lead Electrocardiogram Interpretation Note EKG was reviewed and interpreted by myself. 12-lead ECG performed at 0536 is interpreted by me as revealing normal sinus rhythm at a rate of 82 beats per minute. [place] is normal. [place] interval is 155 ms, QRS durations 104 ms, QTc is 408 ms.. There were no ST or T wave abnormalities to suggest myocardial isc hemia or injury. R wave progression across the precordium was satisfactory. By my interpretation this EKG is non-diagnostic for acute ischemia. Disposition Clinical Impression: GERD (gastroesophageal reflux disease) Disposition: HOME SELF-CARE Condition: Good Instructions (If sedation given, give patient instructions): GERD (Gastroesophageal Reflux Disease) (ED) Prescriptions: Famotidine [Pepcid] 10 mg PO DAILY 7 Days #7 tab Is patient prescribed a controlled substance at d/c from ED?: No Referrals: None,Stated [REFERRING] - 1-2 days Time of Disposition: 06:31
--- NOTE | 2022-09-23 06:05 | XR ---
EXAMINATION TYPE: XR chest 1V portable DATE OF EXAM: 09/23/2022 COMPARISON: Chest x-ray December 01, 2019 HISTORY: Chest pain. TECHNIQUE: Single frontal view of the chest is obtained. FINDINGS: There is no suspicious new focal air space opacity, pleural effusion, or pneumothorax seen . The cardiac silhouette size is stable and within normal limits. The osseous structures are intac t. IMPRESSION: No acute process. No significant change from prior.
== END 2022-09-23 06:45 | disposition home or self-care (01) ==
LOC: EC 04:50
DX: K21.9 Gastro-esophageal reflux disease without esophagitis (principal); F32.A Depression, unspecified; Z87.891 Personal history of nicotine dependence; Z79.899 Other long term (current) drug therapy; Z88.8 Allergy status to other drugs, medicaments and biological substances; Z88.6 Allergy status to analgesic agent
CPT/HCPCS: 71045; 93005; 99284

== ENCOUNTER 2022-09-23 23:05 | Emergency (ER) | payer OTHER ==
[2022-09-24] MEDS ORDERED: LIDOCAINE 5% PATCH TOPICAL ONE (02:08)
[2022-09-24] MEDS ORDERED: KETOROLAC 15 MG/ML 1 ML VIAL IM STA (02:08)
--- NOTE | 2022-09-24 02:19 | ED ---
Back Pain HPI - General Chief Complaint: Back Pain/Injury Stated Complaint: Back Pain Time Seen by Provider: 09/24/22 01:50 Source: patient, RN notes reviewed Limitations: no limitations - History of Present Illness Initial Comments: This is a 32-year-old male who presents to the emergency department for back pain. When I went to evaluate the patient, he had all of the lights turned off in the room and he was sleeping heavily. When I first evaluated him, he had forgotten why he was here until I asked if he was experiencing back pain, which was what was listed in his triage information. States that this has been present for a "long time" and it is all over the back. Denies any injuries. Also denies any loss of bowel/bladder control or saddle anesthesia. The patient is homeless and this is his fifth visit in the last 3 days. States that he has been unable to get into a homeless longterm. Denies any fevers, chills, sore throat, cough, dyspnea, chest pain, palpitations, abdominal pain, nausea, vomiting, diarrhea, or headaches. MD Complaint: back pain - Related Data Home Medications Medication Instructions Recorded Confirmed ARIPiprazole [Abilify] 50 mg INJ QMONTH 01/13/15 01/13/15 Zolpidem Tartrate [Ambien] 5 mg PO HS 01/13/15 01/13/15 clonazePAM [KlonoPIN] 1 mg PO BID 01/13/15 01/13/15 Previous Rx's Medication Instructions Recorded Ibuprofen [Motrin] 400 mg PO Q6HR PRN #20 tab 09/20/22 Penicillin V Potassium [Pen Vee K] 500 mg PO QID 7 Days #28 tablet 09/20/22 Ketotifen 0.025% Ophth Soln 1 drop BOTH EYES BID #5 ml 09/21/22 [Zaditor] Nicotine Gum (Polacrilex) 2 mg BUCCAL Q2H #100 piece gum 09/21/22 [Nicorette] Famotidine [Pepcid] 10 mg PO DAILY 7 Days #7 tab 09/23/22 Allergies Allergy/AdvReac Type Severity Reaction Status Date / Time aripiprazole [From Abilify] AdvReac Unknown Verified 09/23/22 23:10 haloperidol [From Haldol] AdvReac Unknown Verified 09/23/22 23:10 paliperidone [From Invega] AdvReac Unknown Verified 09/23/22 23:10 Review of Systems ROS Statement: Those systems with pertinent positive or pertinent negative responses have been documented in the HPI. ROS Other: All systems not noted in ROS Statement are negative. Past Medical History Past Medical History: GERD/Reflux Additional Past Medical History / Comment(s): depression, former alcoholic History of Any Multi-Drug Resistant Organisms: None Reported Additional Past Surgical History / Comment(s): left hand Past Psychological History: Anxiety, Depression, Schizoaffective Disorder, Schizophrenia Smoking Status: Former smoker Past Alcohol Use History: None Reported Past Drug Use History: None Reported General Exam Limitations: no limitations General appearance: alert, in no apparent distress Head exam: Present: atraumatic, normocephalic, normal inspection Respiratory exam: Present: normal lung sounds bilaterally. Absent: respiratory distress, wheezes, rales, rhonchi, stridor Cardiovascular Exam: Present: regular rate, normal rhythm, normal heart sounds. Absent: systolic murmur, diastolic murmur, rubs, gallop, clicks Back exam: Present: normal inspection, full ROM, other (No step offs). Absent: tenderness Neurological exam: Present: alert, oriented X3, CN II-XII intact Psychiatric exam: Present: normal affect, normal mood Skin exam: Present: warm, dry, intact, normal color. Absent: rash Course Vital Signs 09/23/22 23:07 Temperature 98.2 F Pulse Rate 72 Respiratory 20 Rate Blood Pressure 130/76 O2 Sat by Pulse 98 Oximetry Medical Decision Making - Medical Decision Making This is a 32-year-old male who presents to the emergency department for back pain. Was pt. sent in by a medical professional or institution? @ -No Did you speak to anyone other than the patient for history? @ -No Did you review nursing and triage notes? @ -Yes, and I agree, it is accurate with regards to the patient's symptoms. Were old charts reviewed? @ -No Differential Diagnosis? @ -Differential Back Pain: Strain, zoster, cauda equina syndrome, epidural abscess, vertebral osteomyelitis, discitis, fracture, subluxation, disc herniation, DJD, spinal stenosis, dissection, AAA, pancreatitis, peptic ulcer disease, pyelonephritis, kidney stone, this is not meant to be an all-inclusive list. What testing was considered but not performed? (CT, X-rays, U/S, labs)? Why? @ -None What meds were considered but not given? Why? @ -None Did you discuss the management of the patient with other professionals? @ -No Did you reconcile home meds? @ -No Was smoking cessation discussed for >3mins.? @ -No Was critical care preformed (if so, how long)? @ -No Were there social determinants of health that impacted care today? How? (Homelessness, low income, unemployed, alcoholism, drug addiction, transportation, low edu. Level, literacy, decrease access to med. care, assisted, rehab)? @ -Yes, the patient is homeless, prompting him to come to the emergency department repeatedly for food and a place to sleep. Was there de-escalation of care discussed even if they declined? (Discuss DNR or withdrawal of care, Hospice)? @ -No What co-morbidities impacted this encounter? (DM, HTN, Smoking, COPD, CAD, Cancer, CVA, Hep., AIDS, mental health diagnosis, sleep apnea, morbid obesity)? @ -None Was patient admitted / discharged? @ -Discharged. The back pain is chronic and remains unchanged. He has no new injuries or red flag signs/symptoms such as loss of bowel/bladder control or saddle anesthesia. The pain has also not gotten any worse. Thus, no imaging will be obtained at this time. Additionally, this is his fifth visit in 3 days for arbitrary complaints. He was given IM Toradol and a lidocaine patch was applied in the emergency department. Patient slept for a period of time and was discharged in stable condition. Advised ibuprofen and Tylenol as needed for pain relief. Also suggested [id number]-phhpubl anesthetics such as lidocaine patches or creams. Undiagnosed new problem with uncertain prognosis? @ -None Drug Therapy requiring intensive monitoring for toxicity (Heparin, Nitro, Insulin, Cardizem)? @ -None Were any procedures done? @ -None Diagnosis/symptom? @ -Chronic back pain Acute, or Chronic, or Acute on Chronic? @ -Chronic Uncomplicated (without systemic symptoms) or Complicated (systemic symptoms)? @ -Uncomplicated Side effects of treatment? @ -None Exacerbation, Progression, or Severe Exacerbation] @ -No Poses a threat to life or bodily function? @ -No Return precautions reviewed in depth, the patient is instructed to return to the emergency department with any new, worsening, or concerning symptoms. Patient verbalized understanding. This case was discussed in detail with the attending ED physician, Dr. Maldonado. Presentation, findings, and treatment plan discussed in detail as well. Disposition Clinical Impression: Mechanical back pain Disposition: HOME SELF-CARE Instructions (If sedation given, give patient instructions): Chronic Back Pain (DC), Lower Back Exercises (ED) Additional Instructions: Return to the emergency department with any new, worsening, or concerning symptoms. Alternate with ibuprofen and Tylenol as needed for pain relief. You can also use kqhu-bsi-cqnhkci anesthetics such as lidocaine patches or cream. Follow up with your primary care provider in 1-2 days. Is patient prescribed a controlled substance at d/c from ED?: No Referrals: None,Stated [Primary Care Provider] - 1-2 days
[2022-09-24 05:55] VITALS: BP 130/75; PULSE 70; RESP 16; TEMP 98.4
== END 2022-09-24 05:55 | disposition home or self-care (01) ==
LOC: EC 23:05
DX: M54.50 Low back pain, unspecified (principal); F41.9 Anxiety disorder, unspecified; F32.A Depression, unspecified; K21.9 Gastro-esophageal reflux disease without esophagitis; Z79.899 Other long term (current) drug therapy; Z87.891 Personal history of nicotine dependence; Z88.8 Allergy status to other drugs, medicaments and biological substances
CPT/HCPCS: 99283; 96372; J1885

== ENCOUNTER 2022-10-28 22:52 | Emergency (ER) | payer OTHER ==
[2022-10-28 22:57] VITALS: BP 123/81; TEMP 98.2
[2022-10-28] MEDS ORDERED: KETOROLAC 15 MG/ML 1 ML VIAL IM STA (23:12)
[2022-10-28 23:38] VITALS: PULSE 79; RESP 16
--- NOTE | 2022-10-28 23:59 | XR ---
EXAMINATION TYPE: XR chest 2V DATE OF EXAM: 10/28/2022 COMPARISON: 09/23/2022 INDICATION: Cough TECHNIQUE: Frontal and lateral views of the chest are obtained. FINDINGS: The heart size is normal. The pulmonary vasculature is normal. The lungs are clear. IMPRESSION: 1. No acute pulmonary process.
--- NOTE | 2022-10-29 00:13 | ED ---
General Adult HPI - General Chief complaint: Recheck/Abnormal Lab/Rx Stated complaint: joint pain Time Seen by Provider: 10/28/22 23:00 Source: patient Mode of arrival: ambulatory Limitations: no limitations - History of Present Illness Initial comments: Patient is a 32-year-old male presenting with chief complaint arthralgias. Patient has history of arthritis and states that his joints are hurting. Patient is currently homeless. No new injury or trauma. States that he has been sleeping more which has caused him to cough more. States that he has some pain in the chest with coughing. No shortness of breath. No palpitations. No numbness, tingling, weakness. No abdominal pain, nausea, vomiting, diarrhea. He admits to congestion. - Related Data Home Medications Medication Instructions Recorded Confirmed ARIPiprazole [Abilify] 50 mg INJ QMONTH 01/13/15 01/13/15 Zolpidem Tartrate [Ambien] 5 mg PO HS 01/13/15 01/13/15 clonazePAM [KlonoPIN] 1 mg PO BID 01/13/15 01/13/15 Previous Rx's Medication Instructions Recorded Ibuprofen [Motrin] 400 mg PO Q6HR PRN #20 tab 09/20/22 Penicillin V Potassium [Pen Vee K] 500 mg PO QID 7 Days #28 tablet 09/20/22 Ketotifen 0.025% Ophth Soln 1 drop BOTH EYES BID #5 ml 09/21/22 [Zaditor] Nicotine Gum (Polacrilex) 2 mg BUCCAL Q2H #100 piece gum 09/21/22 [Nicorette] Famotidine [Pepcid] 10 mg PO DAILY 7 Days #7 tab 09/23/22 Allergies Allergy/AdvReac Type Severity Reaction Status Date / Time aripiprazole [From Abilify] AdvReac Unknown Verified 10/28/22 22:57 haloperidol [From Haldol] AdvReac Unknown Verified 10/28/22 22:57 paliperidone [From Invega] AdvReac Unknown Verified 10/28/22 22:57 Review of Systems ROS Statement: Those systems with pertinent positive or pertinent negative responses have been documented in the HPI. ROS Other: All systems not noted in ROS Statement are negative. Past Medical History Past Medical History: GERD/Reflux Additional Past Medical History / Comment(s): depression, former alcoholic History of Any Multi-Drug Resistant Organisms: None Reported Additional Past Surgical History / Comment(s): left hand Past Psychological History: Anxiety, Depression, Schizoaffective Disorder, Schizophrenia Smoking Status: Former smoker Past Alcohol Use History: Occasional Past Drug Use History: None Reported General Exam Limitations: no limitations General appearance: alert, in no apparent distress Head exam: Present: atraumatic, normocephalic, normal inspection Eye exam: Present: normal appearance, EOMI. Absent: scleral icterus, periorbital swelling Neck exam: Present: normal inspection, full ROM Respiratory exam: Present: normal lung sounds bilaterally. Absent: respiratory distress, wheezes, rales, rhonchi, stridor Cardiovascular Exam: Present: regular rate, normal rhythm, normal heart sounds. Absent: systolic murmur, diastolic murmur, rubs, gallop, clicks Extremities exam: Present: normal inspection, full ROM Neurological exam: Present: alert, oriented X3, CN II-XII intact Psychiatric exam: Present: normal affect, normal mood Skin exam: Present: warm, dry, intact, normal color. Absent: rash Course Vital Signs 10/28/22 10/28/22 22:54 23:35 Temperature 98.2 F Pulse Rate 131 H 79 Respiratory 20 16 Rate Blood Pressure 123/81 O2 Sat by Pulse 98 Oximetry Medical Decision Making - Medical Decision Making Was pt. sent in by a medical professional or institution (ANGEL Freeman, TOW OPERATOR, urgent care, hospital, or detention...) When possible be specific @ -No Did you speak to anyone other than the patient for history (EMS, parent, family, police, friend...)? What history was obtained from this source @ -No Did you review nursing and triage notes (agree or disagree)? Why? @ -I reviewed and agree with nursing and triage notes Were old charts reviewed (outside hosp., previous admission, EMS record, old EKG, old radiological studies, urgent care reports/EKG's, detention records)? Report findings @ -No old charts were reviewed Differential Diagnosis (chest pain, altered mental status, abdominal pain women, abdominal pain men, vaginal bleeding, weakness, fever, dyspnea, syncope, headache, dizziness, GI bleed, back pain, seizure, CVA, palpatations, mental health, musculoskeletal)? @ -Differential Musculoskeletal Muscular strain, contusion, ligament sprain, fracture, arthritis, septic arthritis, bursitis, cellulitis, muscle spasm, nerve compression, DVT, arterial occlusion, herpes zoster, electrolyte abnormality, tumor.... This is not meant to be in all inclusive list EKG interpreted by me (3pts min.). @ -As above X-rays interpreted by me (1pt min.). @ -Chest x-ray shows no acute process CT interpreted by me (1pt min.). @ -None done U/S interpreted by me (1pt. min.). @ -None done What testing was considered but not performed or refused? (CT, X-rays, U/S, labs)? Why? @ -None What meds were considered but not given or refused? Why? @ -None Did you discuss the management of the patient with other professionals (professionals i.e. , PA, TOW OPERATOR, lab, RT, psych nurse, clinical social worker, urban design consultant, teacher, worldwide chief creative officer, special education case manager)? Give summary @ -No Was smoking cessation discussed for >3mins.? @ -No Was critical care preformed (if so, how long)? @ -No Were there social determinants of health that impacted care today? How? (Homelessness, low income, unemployed, alcoholism, drug addiction, transportation, low edu. Level, literacy, decrease access to med. care, usp, rehab)? @ -Homelessness Was there de-escalation of care discussed even if they declined (Discuss DNR or withdrawal of care, Hospice)? DNR status @ -No What co-morbidities impacted this encounter? (DM, HTN, Smoking, COPD, CAD, Cancer, CVA, ARF, Chemo, Hep., AIDS, mental health diagnosis, sleep apnea, morbid obesity)? @ -None Was patient admitted / discharged? Hospital course, mention meds given and route, prescriptions, significant lab abnormalities, going to OR and other pertinent info. @ -Patient is a 32-year-old male presenting with chief complaint of diffuse joint pain. Admits to history of arthritis. Also admits to increased fainting and coughing. Patient is currently homeless. Physical examination is unremarkable. Patient reports improvement in his pain after Toradol. Chest x- ray shows no acute process. Educated on supportive management. Follow-up with PCP. Report back to ER with any new or worsening symptoms. Discussed return parameters and answered all questions. Patient conveyed verbal understanding an d agreed to the plan. I discussed this case in detail with my attending Dr. Garrett Undiagnosed new problem with uncertain prognosis? @ -No Drug Therapy requiring intensive monitoring for toxicity (Heparin, Nitro, Insulin, Cardizem)? @ -No Were any procedures done? @ -No Diagnosis/symptom? @ -Arthralgias Acute, or Chronic, or Acute on Chronic? @ -Acute Uncomplicated (without systemic symptoms) or Complicated (systemic symptoms)? @ -Uncomplicated Side effects of treatment? @ -No Exacerbation, Progression, or Severe Exacerbation? @ -No Poses a threat to life or bodily function? How? (Chest pain, [place], [place], pneumonia, PE, COPD, DKA, ARF, appy, cholecystitis, CVA, Diverticulitis, Homicidal, Suicidal, threat to staff... and all critical care pts) @ -No Disposition Clinical Impression: Arthralgia Disposition: HOME SELF-CARE Condition: Good Instructions (If sedation given, give patient instructions): Arthralgia (ED) Additional Instructions: Follow-up with PCP. Report back to ER with any new or worsening symptoms. Take Motrin and Tylenol stated for pain control. Is patient prescribed a controlled substance at d/c from ED?: No Referrals: None,Stated [Primary Care Provider] - 1-2 days [facility] [NON-STAFF] - 1-2 days Time of Disposition: 00:13
== END 2022-10-29 00:23 | disposition home or self-care (01) ==
LOC: EC 22:52
DX: M25.50 Pain in unspecified joint (principal); F20.9 Schizophrenia, unspecified; F41.9 Anxiety disorder, unspecified; F32.A Depression, unspecified; Z79.899 Other long term (current) drug therapy; Z59.00 Homelessness unspecified; Z87.891 Personal history of nicotine dependence; Z88.8 Allergy status to other drugs, medicaments and biological substances
CPT/HCPCS: 71046; 99283; 96372; J1885

== ENCOUNTER 2022-10-30 13:13 | Emergency (ER) | payer OTHER ==
[2022-10-30 13:28] VITALS: TEMP 98.1
[2022-10-30] MEDS ORDERED: HYDROCORTISONE 2.5% RECTAL CREAM 30 GM TUBE RECTAL STA (13:43)
[2022-10-30] MEDS ORDERED: ACET/COD 300 MG/30 MG STARTER PACK 6 TAB BTL PO STA (13:44)
--- NOTE | 2022-10-30 13:51 | ED ---
General Adult HPI - General Chief complaint: Abdominal Pain Stated complaint: Hemorrhoid Time Seen by Provider: 10/30/22 13:30 Source: patient, RN notes reviewed Mode of arrival: ambulatory Limitations: no limitations - History of Present Illness Initial comments: Patient is a pleasant 32-year-old male presenting to the emergency department with concern for rectal pain. Patient believes his hemorrhoid. No history of similar symptoms previously. Patient states it just started bothering him yesterday. Patient believes he was straining while having a bowel movement. Patient has discomfort itching and burning in the rectal region. No other area of concern or other complaints. Patient did feel a bulging. Patient states bulging was tender. - Related Data Home Medications Medication Instructions Recorded Confirmed ARIPiprazole [Abilify] 50 mg INJ QMONTH 01/13/15 01/13/15 Zolpidem Tartrate [Ambien] 5 mg PO HS 01/13/15 01/13/15 clonazePAM [KlonoPIN] 1 mg PO BID 01/13/15 01/13/15 Previous Rx's Medication Instructions Recorded Ibuprofen [Motrin] 400 mg PO Q6HR PRN #20 tab 09/20/22 Penicillin V Potassium [Pen Vee K] 500 mg PO QID 7 Days #28 tablet 09/20/22 Ketotifen 0.025% Ophth Soln 1 drop BOTH EYES BID #5 ml 09/21/22 [Zaditor] Nicotine Gum (Polacrilex) 2 mg BUCCAL Q2H #100 piece gum 09/21/22 [Nicorette] Famotidine [Pepcid] 10 mg PO DAILY 7 Days #7 tab 09/23/22 Hydrocortisone [Anusol-Hc] 1 applic RECTAL TID #30 gm 10/30/22 Allergies Allergy/AdvReac Type Severity Reaction Status Date / Time aripiprazole [From Abilify] AdvReac Unknown Verified 10/30/22 13:27 haloperidol [From Haldol] AdvReac Unknown Verified 10/30/22 13:27 paliperidone [From Invega] AdvReac Unknown Verified 10/30/22 13:27 Review of Systems ROS Statement: Those systems with pertinent positive or pertinent negative responses have been documented in the HPI. ROS Other: All systems not noted in ROS Statement are negative. Constitutional: Denies: fever Respiratory: Denies: dyspnea Cardiovascular: Denies: chest pain Gastrointestinal: Reports: as per HPI. Denies: abdominal pain, nausea, vomiting Genitourinary: Denies: dysuria Musculoskeletal: Denies: back pain Skin: Denies: rash Past Medical History Past Medical History: GERD/Reflux Additional Past Medical History / Comment(s): depression, former alcoholic History of Any Multi-Drug Resistant Organisms: None Reported Past Surgical History: Orthopedic Surgery Additional Past Surgical History / Comment(s): left hand Past Psychological History: Anxiety, Depression, Schizoaffective Disorder, Schizophrenia Smoking Status: Former smoker Past Alcohol Use History: Occasional Past Drug Use History: None Reported General Exam Limitations: no limitations General appearance: alert, in no apparent distress Head exam: Present: normocephalic Respiratory exam: Present: normal lung sounds bilaterally Cardiovascular Exam: Present: regular rate, normal rhythm Rectal exam: Present: hemorrhoids (Approximately 1 x 1 cm in the 12o'clock position) Extremities exam: Present: normal inspection Neurological exam: Present: alert Psychiatric exam: Present: normal affect, normal mood Skin exam: Present: normal color Course Vital Signs 10/30/22 13:24 Temperature 98.1 F Pulse Rate 88 Respiratory 20 Rate Blood Pressure 126/79 O2 Sat by Pulse 96 Oximetry Medical Decision Making - Medical Decision Making Was pt. sent in by a medical professional or institution (Dr. PA, [employer], urgent care, hospital, or fpc...) When possible be specific @ -No Did you speak to anyone other than the patient for history (EMS, parent, family, police, friend...)? What history was obtained from this source @ -No Did you review nursing and triage notes (agree or disagree)? Why? @ -I reviewed and agree with nursing and triage notes Were old charts reviewed (outside hosp., previous admission, EMS record, old EKG, old radiological studies, urgent care reports/EKG's, fpc records)? Report findings @ -No old charts were reviewed Differential Diagnosis (chest pain, altered mental status, abdominal pain women, abdominal pain men, vaginal bleeding, weakness, fever, dyspnea, syncope, headache, dizziness, GI bleed, back pain, seizure, CVA, palpatations, mental health)? @ -not applicable EKG interpreted by me (3pts min.). @ -As above X-rays interpreted by me (1pt min.). @ -None done CT interpreted by me (1pt min.). @ -None done U/S interpreted by me (1pt. min.). @ -None done What testing was considered but not performed or refused? (CT, X-rays, U/S, labs)? Why? @ -None What meds were considered but not given or refused? Why? @ -None Did you discuss the management of the patient with other professionals (professionals i.e. DrRadha, PA, [employer], lab, RT, psych nurse, psychotherapist social worker, quiller runner, teacher, weapons officer naval activity, disease case manager rn)? Give summary @ -No Was smoking cessation discussed for >3mins.? @ -No Was critical care preformed (if so, how long)? @ -No Were there social determinants of health that impacted care today? How? (Homelessness, low income, unemployed, alcoholism, drug addiction, transportation, low edu. Level, literacy, decrease access to med. care, assisted, rehab)? @ -No Was there de-escalation of care discussed even if they declined (Discuss DNR or withdrawal of care, Hospice)? DNR status @ -No What co-morbidities impacted this encounter? (DM, HTN, Smoking, COPD, CAD, Cancer, CVA, ARF, Chemo, Hep., AIDS, mental health diagnosis, sleep apnea, morbid obesity)? @ -None Was patient admitted / discharged? Hospital course, mention meds given and route, prescriptions, significant lab abnormalities, going to OR and other pertinent info. @ -Patient will be discharged. Patient will be given prescription for steroid cream for external hemorrhoid. Patient will be also provided a couple pain pills as well as instructions regarding high-fiber diet Undiagnosed new problem with uncertain prognosis? @ -No Drug Therapy requiring intensive monitoring for toxicity (Heparin, Nitro, Insulin, Cardizem)? @ -No Were any procedures done? @ -No Diagnosis/symptom? @ -Hemorrhoid Acute, or Chronic, or Acute on Chronic? @ -Acute Uncomplicated (without systemic symptoms) or Complicated (systemic symptoms)? @ -default Side effects of treatment? @ -No Exacerbation, Progression, or Severe Exacerbation? @ -No Poses a threat to life or bodily function? How? (Chest pain, [place], [place], pneumonia, PE, COPD, DKA, ARF, appy, cholecystitis, CVA, Diverticulitis, Homicidal, Suicidal, threat to staff... and all critical care pts) @ -No Disposition Clinical Impression: Hemorrhoid Disposition: HOME SELF-CARE Condition: Stable Instructions (If sedation given, give patient instructions): Hemorrhoids (ED) Additional Instructions: Prescription sent to pharmacy. Please do follow-up with primary care physician in the next couple days for recheck. Return for increased pain, bleeding, fever, worsening or changing symptoms or other concerns. High-fiber diet. Prescriptions: Hydrocortisone [Anusol-Hc] 1 applic RECTAL TID #30 gm Is patient prescribed a controlled substance at d/c from ED?: No Referrals: Michael Rivera MD [STAFF PHYSICIAN] - 1-2 days Time of Disposition: 13:50
[2022-10-30 14:24] VITALS: BP 130/74; PULSE 78; RESP 18
== END 2022-10-30 14:24 | disposition home or self-care (01) ==
LOC: EC 13:13
DX: K64.9 Unspecified hemorrhoids (principal); K21.9 Gastro-esophageal reflux disease without esophagitis; F41.9 Anxiety disorder, unspecified; F32.A Depression, unspecified; F25.9 Schizoaffective disorder, unspecified; Z87.891 Personal history of nicotine dependence; Z88.8 Allergy status to other drugs, medicaments and biological substances; Z79.899 Other long term (current) drug therapy
CPT/HCPCS: 99283

== ENCOUNTER 2022-11-01 04:52 | Emergency (ER) | payer OTHER ==
[2022-11-01 05:06] VITALS: BP 128/78; PULSE 80; RESP 16; TEMP 97.7
== END 2022-11-01 05:31 | disposition left against medical advice (07) ==
LOC: EC 04:52
DX: Z53.21 Procedure and treatment not carried out due to patient leaving prior to being seen by health care provider (principal)
CPT/HCPCS: 99499

== ENCOUNTER 2022-11-14 03:23 | Emergency (ER) | payer OTHER ==
[2022-11-14 03:36] VITALS: BP 129/83; PULSE 83; RESP 18; TEMP 97.6
--- NOTE | 2022-11-14 04:11 | ED ---
General Adult HPI - General Chief complaint: Recheck/Abnormal Lab/Rx Stated complaint: Mental Health Time Seen by Provider: 11/14/22 03:50 Source: patient Mode of arrival: ambulatory Limitations: no limitations - History of Present Illness Initial comments: This is a 32-year-old male who presents emergency department demanding psychiatric medications and pain medications. The patient was dropped off by police and stated to the triage nurse that he demanded multiple different psychiatric medications and pain medications. The patient has been well-known to the emergency department after being aggressive and combative toward staff. The patient was aggressive and combative towards me once I began to evaluate the patient. The patient confronted me and continued to demand psychiatric medications as well as multiple x-rays as well as multiple medications including narcotics. The patient was walking throughout the emergency department and was walking and confronting multiple staff members and a confrontational manner. The patient could not carry a normal conversation and instead was aggressive and agitated towards everybody in the department. The patient however denied any suicidal or homicidal ideation. - Related Data Home Medications Medication Instructions Recorded Confirmed ARIPiprazole [Abilify] 50 mg INJ QMONTH 01/13/15 01/13/15 Zolpidem Tartrate [Ambien] 5 mg PO HS 01/13/15 01/13/15 clonazePAM [KlonoPIN] 1 mg PO BID 01/13/15 01/13/15 Previous Rx's Medication Instructions Recorded Ibuprofen [Motrin] 400 mg PO Q6HR PRN #20 tab 09/20/22 Penicillin V Potassium [Pen Vee K] 500 mg PO QID 7 Days #28 tablet 09/20/22 Ketotifen 0.025% Ophth Soln 1 drop BOTH EYES BID #5 ml 09/21/22 [Zaditor] Nicotine Gum (Polacrilex) 2 mg BUCCAL Q2H #100 piece gum 09/21/22 [Nicorette] Famotidine [Pepcid] 10 mg PO DAILY 7 Days #7 tab 09/23/22 Hydrocortisone [Anusol-Hc] 1 applic RECTAL TID #30 gm 10/30/22 Allergies Allergy/AdvReac Type Severity Reaction Status Date / Time tomato Allergy Unknown Verified 11/14/22 03:32 aripiprazole [From Abilify] AdvReac Unknown Verified 11/14/22 03:32 haloperidol [From Haldol] AdvReac Unknown Verified 11/14/22 03:32 paliperidone [From Invega] AdvReac Unknown Verified 11/14/22 03:32 Review of Systems ROS Statement: Those systems with pertinent positive or pertinent negative responses have been documented in the HPI. ROS Other: All systems not noted in ROS Statement are negative. Past Medical History Past Medical History: GERD/Reflux Additional Past Medical History / Comment(s): depression, former alcoholic History of Any Multi-Drug Resistant Organisms: None Reported Past Surgical History: Orthopedic Surgery Additional Past Surgical History / Comment(s): left hand Past Psychological History: Anxiety, Depression, Schizoaffective Disorder, Schizophrenia Smoking Status: Current some day smoker Past Alcohol Use History: Occasional Past Drug Use History: Prescription Drug Abuse General Exam Limitations: physical limitation (Patient was aggressive, demanding and trying to command his care in the emergency department.) General appearance: alert, in no apparent distress Head exam: Present: atraumatic, normocephalic, normal inspection Eye exam: Present: normal appearance, PERRL Pupils: Present: normal accommodation ENT exam: Present: normal exam, normal oropharynx, mucous membranes moist Neck exam: Present: normal inspection, full ROM Respiratory exam: Present: normal lung sounds bilaterally. Absent: respiratory distress Cardiovascular Exam: Present: regular rate, normal rhythm, normal heart sounds GI/Abdominal exam: Present: soft, normal bowel sounds Extremities exam: Present: normal inspection, full ROM Back exam: Present: normal inspection, full ROM Neurological exam: Present: alert, oriented X3 Psychiatric exam: Present: agitated, other (Aggressive and confrontational toward staff.) Skin exam: Present: warm, dry Course Vital Signs 11/14/22 03:32 Temperature 97.6 F Pulse Rate 83 Respiratory 18 Rate Blood Pressure 129/83 O2 Sat by Pulse 98 Oximetry Medical Decision Making - Medical Decision Making Was pt. sent in by a medical professional or institution (, PA, [employer], urgent care, hospital, or senior living...) When possible be specific @ -No Did you speak to anyone other than the patient for history (EMS, parent, family, police, friend...)? What history was obtained from this source @ -No Did you review nursing and triage notes (agree or disagree)? Why? @ -I reviewed and agree with nursing and triage notes Were old charts reviewed (outside hosp., previous admission, EMS record, old EKG, old radiological studies, urgent care reports/EKG's, senior living records)? Report findings @ -No old charts were reviewed Differential Diagnosis (chest pain, altered mental status, abdominal pain women, abdominal pain men, vaginal bleeding, weakness, fever, dyspnea, syncope, headache, dizziness, GI bleed, back pain, seizure, CVA, palpatations, mental health)? @ -Aggression, drug seeking behavior, psychosis EKG interpreted by me (3pts min.). @ -None X-rays interpreted by me (1pt min.). @ -None done CT interpreted by me (1pt min.). @ -None done U/S interpreted by me (1pt. min.). @ -None done What testing was considered but not performed or refused? (CT, X-rays, U/S, labs)? Why? @ -None What meds were considered but not given or refused? Why? @ -None Did you discuss the management of the patient with other professionals (professionals i.e. , PA, H[employer]WO[employer]ISHER, lab, RT, psych nurse, social media developer, feather shaper, teacher, principal gifts officer, case planner)? Give summary @ -No Was smoking cessation discussed for >3mins.? @ -No Was critical care preformed (if so, how long)? @ -No Were there social determinants of health that impacted care today? How? (Homelessness, low income, unemployed, alcoholism, drug addiction, transportation, low edu. Level, literacy, decrease access to med. care, prison, rehab)? @ -No Was there de-escalation of care discussed even if they declined (Discuss DNR or withdrawal of care, Hospice)? DNR status @ -No What co-morbidities impacted this encounter? (DM, HTN, Smoking, COPD, CAD, Cancer, CVA, ARF, Chemo, Hep., AIDS, mental health diagnosis, sleep apnea, morbid obesity)? @ -None Was patient admitted / discharged? Hospital course, mention meds given and route, prescriptions, significant lab abnormalities, going to OR and other pertinent info. @ -The patient was seen and evaluated in emergency department. Initially when I presented to the patient, he was aggressive and combative as well as confrontational with me. The patient demanded multiple psychiatric medications as well as narcotics for pain. The patient started naming off multiple different diagnoses and the fact that he needed medications and x-rays for all of these things. The patient was however walking throughout the emergency department without any acute distress or pain noted. The patient has been well- known to be aggressive and combative toward staff and did threaten to kill multiple people in the emergency department last time he was here. The patient today was told multiple times that he would not be receiving any psychiatric medications and he became more aggressive. The patient denied of any other acute complaints at this time and was therefore stable for discharge home. [place] and police were called in order to assist with discharge and the patient. The patient received follow-up information was told to follow-up with [facility] for psychiatric medications. The patient was escorted by police out of the emergency department. Undiagnosed new problem with uncertain prognosis? @ -No Drug Therapy requiring intensive monitoring for toxicity (Heparin, Nitro, Insulin, Cardizem)? @ -No Were any procedures done? @ -No Diagnosis/symptom? @ -Drug-seeking behavior Acute, or Chronic, or Acute on Chronic? @ -Acute on chronic Uncomplicated (without systemic symptoms) or Complicated (systemic symptoms)? @ -Complicated Side effects of treatment? @ -No Exacerbation, Progression, or Severe Exacerbation? @ -No Poses a threat to life or bodily function? How? (Chest pain, [place], [place], pneumonia, PE, COPD, DKA, ARF, appy, cholecystitis, CVA, Diverticulitis, Homicidal, Suicidal, threat to staff... and all critical care pts) @ -No Disposition Clinical Impression: Encounter for medication refill Disposition: HOME SELF-CARE Condition: Stable Instructions (If sedation given, give patient instructions): Medicine Refill (ED) Is patient prescribed a controlled substance at d/c from ED?: No Referrals: None,Stated [Primary Care Provider] - 1-2 days Time of Disposition: 04:00
== END 2022-11-14 04:22 | disposition home or self-care (01) ==
LOC: EC 03:23
DX: Z76.0 Encounter for issue of repeat prescription (principal); K21.9 Gastro-esophageal reflux disease without esophagitis; F41.9 Anxiety disorder, unspecified; F32.A Depression, unspecified; F17.200 Nicotine dependence, unspecified, uncomplicated; Z79.899 Other long term (current) drug therapy; Z91.018 Allergy to other foods; Z88.8 Allergy status to other drugs, medicaments and biological substances
CPT/HCPCS: 99283

== ENCOUNTER 2022-12-16 00:20 | Emergency (ER) | payer OTHER ==
[2022-12-16 00:39] VITALS: BP 166/95; PULSE 93; RESP 20; TEMP 97.8
[2022-12-16] MEDS ORDERED: IBUPROFEN 400 MG TAB PO STA (02:18)
[2022-12-16] MEDS ORDERED: SODIUM CHLORIDE 0.9% 1,000 ML IV STA (02:18)
[2022-12-16 02:51] LABS: Basophils % (A) 0 %; Eosinophils # (A) 0.2 k/uL (0-0.7); Eosinophils % (A) 2 %; HCT 50.7 % (39.0-53.0); HGB 16.2 gm/dL (13.0-17.5); Lymphocytes # (A) 3.9 k/uL (1.0-4.8); Lymphocytes % (A) 47 %; MCH 30.6 pg (25.0-35.0); MCV 95.6 fL (80.0-100.0); Mean Platelet Volume 7.7; Monocytes # (A) 0.5 k/uL (0-1.0); Monocytes % (A) 6 %; Neutrophils # (A) 3.6 k/uL (1.3-7.7); Neutrophils % (A) 43 %; Platelet Count 365 k/uL (150-450); RBC 5.31 m/uL (4.30-5.90); RDW 13.3 % (11.5-15.5); WBC 8.4 k/uL (3.8-10.6)
[2022-12-16 03:00] LABS: ALT 18 U/L (4-49); AST 28 U/L (17-59); African American GFR (CKD) >90 (>60 ml/min/1.73 sqM); Albumin 4.8 g/dL (3.5-5.0); Alkaline Phosphatase 94 U/L (38-126); Anion Gap 12 mmol/L; Blood Urea Nitrogen 10 mg/dL (9-20); Calcium 9.6 mg/dL (8.4-10.2); Carbon Dioxide 26 mmol/L (22-30); Chloride 105 mmol/L (98-107); Glucose 66 mg/dL (74-99); Non-African American GFR(CKD) >90 (>60 ml/min/1.73 sqM); Potassium 3.7 mmol/L (3.5-5.1); Sodium 143 mmol/L (137-145); Total Bilirubin 0.4 mg/dL (0.2-1.3); Total Protein 8.2 g/dL (6.3-8.2)
--- NOTE | 2022-12-16 03:08 | ED ---
General Adult HPI - General Chief complaint: Recheck/Abnormal Lab/Rx Stated complaint: lead poisoning Time Seen by Provider: 12/16/22 01:54 Source: patient, RN notes reviewed, old records reviewed Mode of arrival: ambulatory Limitations: no limitations - History of Present Illness Initial comments: Patient is a 32-year-old male who frequents her emergency department presents emergency Department complaining of nonspecific issues. Is concerned about his liver function, as well as his kidneys with no clear reason why. States he occasionally will get abdominal pain but currently has none. Is concerned that he might have been exposed to let his child and is requesting a lead level. Patient states that he did eat old paint chips as a child which is why he is concerned about possible lead exposure. No recent lead exposure. Has no other acute complaints at this time. Denies chest pain or shortness breath or nausea. Denies vomiting, diarrhea, sick contacts. Denies fevers, chills, cough. No other acute complaints. Presents for laboratory studies. - Related Data Home Medications Medication Instructions Recorded Confirmed ARIPiprazole [Abilify] 50 mg INJ QMONTH 01/13/15 01/13/15 Zolpidem Tartrate [Ambien] 5 mg PO HS 01/13/15 01/13/15 clonazePAM [KlonoPIN] 1 mg PO BID 01/13/15 01/13/15 Previous Rx's Medication Instructions Recorded Ibuprofen [Motrin] 400 mg PO Q6HR PRN #20 tab 09/20/22 Penicillin V Potassium [Pen Vee K] 500 mg PO QID 7 Days #28 tablet 09/20/22 Ketotifen 0.025% Ophth Soln 1 drop BOTH EYES BID #5 ml 09/21/22 [Zaditor] Nicotine Gum (Polacrilex) 2 mg BUCCAL Q2H #100 piece gum 09/21/22 [Nicorette] Famotidine [Pepcid] 10 mg PO DAILY 7 Days #7 tab 09/23/22 Hydrocortisone [Anusol-Hc] 1 applic RECTAL TID #30 gm 10/30/22 Allergies Allergy/AdvReac Type Severity Reaction Status Date / Time tomato Allergy Unknown Verified 12/16/22 00:39 aripiprazole [From Abilify] AdvReac Unknown Verified 12/16/22 00:39 haloperidol [From Haldol] AdvReac Unknown Verified 12/16/22 00:39 paliperidone [From Invega] AdvReac Unknown Verified 12/16/22 00:39 Review of Systems ROS Statement: Those systems with pertinent positive or pertinent negative responses have been documented in the HPI. Review of Systems: CONST: Denies fever EYES: Denies blurry vision ENT: Denies nasal congestion C/V: Denies Chest pain RESP: Denies shortness of breath GI: Denies abdominal pain : Denies dysuria SKIN: Denies rash. MSK: Denies joint pain. NEURO: Denies headache ROS Other: All systems not noted in ROS Statement are negative. Past Medical History Past Medical History: GERD/Reflux Additional Past Medical History / Comment(s): depression, former alcoholic History of Any Multi-Drug Resistant Organisms: None Reported Past Surgical History: Orthopedic Surgery Additional Past Surgical History / Comment(s): left hand Past Psychological History: Anxiety, Depression, Schizoaffective Disorder, Schizophrenia Smoking Status: Current some day smoker Past Alcohol Use History: Occasional Past Drug Use History: Prescription Drug Abuse General Exam - General Exam Comments Initial Comments: General: Appears in no acute distress. HEAD: Normal with no signs of head trauma. EYES: EOMI. ENT: Hearing grossly intact. RESPIRATORY: No respiratory distress. C/V: Regular rate and rhythm. ABD: Abdomen is nondistended,nontender, soft. EXT: No obvious deformity. SKIN: No rashes or lesions observed on exposed skin. NEURO: Alert and oriented. Limitations: no limitations Course Vital Signs 12/16/22 00:32 Temperature 97.8 F Pulse Rate 93 Respiratory 20 Rate Blood Pressure 166/95 O2 Sat by Pulse 95 Oximetry Medical Decision Making - Medical Decision Making Was pt. sent in by a medical professional or institution (, PA, [employer]ER, urgent ca re, hospital, or senior care...) When possible be specific @ -No Did you speak to anyone other than the patient for history (EMS, parent, family, police, friend...)? What history was obtained from this source @ -No Did you review nursing and triage notes (agree or disagree)? Why? @ -I reviewed and agree with nursing and triage notes Were old charts reviewed (outside hosp., previous admission, EMS record, old EKG, old radiological studies, urgent care reports/EKG's, senior care records)? Report findings @ -No old charts were reviewed Differential Diagnosis (chest pain, altered mental status, abdominal pain women, abdominal pain men, vaginal bleeding, weakness, fever, dyspnea, syncope, headache, dizziness, GI bleed, back pain, seizure, CVA, palpatations, mental health, musculoskeletal)? @ -Encounter for laboratory studies, possible lead exposure, liver dysfunction, kidney dysfunction. This list is not all inclusive. EKG interpreted by me (3pts min.). @ -None done X-rays interpreted by me (1pt min.). @ -None done CT interpreted by me (1pt min.). @ -None done U/S interpreted by me (1pt. min.). @ -None done What testing was considered but not performed or refused? (CT, X-rays, U/S, labs)? Why? @ -None What meds were considered but not given or refused? Why? @ -None Did you discuss the management of the patient with other professionals (professionals i.e. , PA, [employer]AT[employer]NA[employer] F[employer]ER, lab, RT, psych nurse, social services aide, seafood and service meat manager, teacher, hospital chief financial officer, bottle caser)? Give summary @ -No Was smoking cessation discussed for >3mins.? @ -No Was critical care preformed (if so, how long)? @ -No Were there social determinants of health that impacted care today? How? (Homelessness, low income, unemployed, alcoholism, drug addiction, transportation, low edu. Level, literacy, decrease access to med. care, fpc, rehab)? @ -No Was there de-escalation of care discussed even if they declined (Discuss DNR or withdrawal of care, Hospice)? DNR status @ -No What co-morbidities impacted this encounter? (DM, HTN, Smoking, COPD, CAD, Cancer, CVA, ARF, Chemo, Hep., AIDS, mental health diagnosis, sleep apnea, morbid obesity)? @ -None Was patient admitted / discharged? Hospital course, mention meds given and route, prescriptions, significant lab abnormalities, going to OR and other pertinent info. @ -Based on the patient's presentation and physical exam, I do suspect he may be presenting as it is pouring rain outside, however he is requesting laboratory draw for lead levels as well as to evaluate his liver function and kidney f unction as he states he does have a history of dysfunction above. States he has been having some intermittent abdominal discomfort which he currently does not have. We will obtain basic labs as well as a lead level, however I did discuss with him that the low level will be back for multiple days. He expresses understanding. Vital signs within acceptable limits. His no acute complaints. I did offer him IV fluids as well as Motrin which were declined. Patient's labs returned within acceptable limits. Level still pending. He has eaten food and drink water while he is here. We did discuss with him that he can follow-up on his lead levels either mind, my patient portal or he can call to obtain them. He was in agreement with this plan. I instructed the patient to follow up with their PCP in the next 1-3 days. I explained that the patient should return to the emergency department if they experience any worsening symptoms. Strict return precautions were discussed with the patient. The patient expressed understanding of these instructions. I answered all questions that the patient had. The patient was discharged home in good condition with their prescriptions and follow up information. Undiagnosed new problem with uncertain prognosis? @ -No Drug Therapy requiring intensive monitoring for toxicity (Heparin, Nitro, Insulin, Cardizem)? @ -No Were any procedures done? @ -No Diagnosis/symptom? @ -History of lead exposure Acute, or Chronic, or Acute on Chronic? @ -Acute Uncomplicated (without systemic symptoms) or Complicated (systemic symptoms)? @ -Uncomplicated Side effects of treatment? @ -No Exacerbation, Progression, or Severe Exacerbation? @ -No Poses a threat to life or bodily function? How? (Chest pain, [place], [place], pneumonia, PE, COPD, DKA, ARF, appy, cholecystitis, CVA, Diverticulitis, Homicidal, Suicidal, threat to staff... and all critical care pts) @ -No - Lab Data Result diagrams: 12/16/22 02:28 12/16/22 02:28 Lab Results 12/16/22 12/16/22 Range/Units 02:28 02:28 WBC 8.4 (3.8-10.6) k/uL RBC 5.31 (4.30-5.90) m/uL Hgb 16.2 (13.0-17.5) gm/dL Hct 50.7 (39.0-53.0) % MCV 95.6 (80.0-100.0) fL MCH 30.6 (25.0-35.0) pg MCHC 32.0 (31.0-37.0) g/dL RDW 13.3 (11.5-15.5) % Plt Count 365 (150-450) k/uL MPV 7.7 Neutrophils % 43 % Lymphocytes % 47 % Monocytes % 6 % Eosinophils % 2 % Basophils % 0 % Neutrophils # 3.6 (1.3-7.7) k/uL Lymphocytes # 3.9 (1.0-4.8) k/uL Monocytes # 0.5 (0-1.0) k/uL Eosinophils # 0.2 (0-0.7) k/uL Basophils # 0.0 (0-0.2) k/uL Sodium 143 (137-145) mmol/L Potassium 3.7 (3.5-5.1) mmol/L Chloride 105 (98-107) mmol/L Carbon Dioxide 26 (22-30) mmol/L Anion Gap 12 mmol/L BUN 10 (9-20) mg/dL Creatinine 0.97 (0.66-1.25) mg/dL Est GFR (CKD-EPI)AfAm >90 (>60 ml/min/1.73 sqM) Est GFR (CKD-EPI)NonAf >90 (>60 ml/min/1.73 sqM) Glucose 66 L (74-99) mg/dL Calcium 9.6 (8.4-10.2) mg/dL Total Bilirubin 0.4 (0.2-1.3) mg/dL AST 28 (17-59) U/L ALT 18 (4-49) U/L Alkaline Phosphatase 94 (38-126) U/L Total Protein 8.2 (6.3-8.2) g/dL Albumin 4.8 (3.5-5.0) g/dL Disposition Clinical Impression: History of exposure to lead Disposition: HOME SELF-CARE Condition: Good Instructions (If sedation given, give patient instructions): Arthritis (ED) Is patient prescribed a controlled substance at d/c from ED?: No Referrals: None,Stated [Primary Care Provider] - 1-2 days Time of Disposition: 03:08
== END 2022-12-16 03:18 | disposition home or self-care (01) ==
LOC: EC 00:20
DX: Z77.011 Contact with and (suspected) exposure to lead (principal); K21.9 Gastro-esophageal reflux disease without esophagitis; F41.9 Anxiety disorder, unspecified; F32.A Depression, unspecified; F17.200 Nicotine dependence, unspecified, uncomplicated; Z79.899 Other long term (current) drug therapy; Z91.018 Allergy to other foods; Z88.6 Allergy status to analgesic agent; Z88.8 Allergy status to other drugs, medicaments and biological substances
CPT/HCPCS: 36415; 80053; 83655; 85025; 99284

== ENCOUNTER 2022-12-20 22:02 | Emergency (ER) | payer MEDICAID, OTHER ==
[2022-12-20 22:22] VITALS: BP 133/84; PULSE 97; RESP 18; TEMP 99
--- NOTE | 2022-12-21 01:10 | ED ---
Psych HPI - General Chief Complaint: Psychiatric Symptoms Stated Complaint: Mental Health Time Seen by Provider: 12/20/22 23:07 Source: patient Mode of arrival: ambulatory - History of Present Illness Initial Comments: 32-year-old male with past medical history of depression, alcohol abuse, schizophrenia who presents to the emergency department with several complaints. Patient is requesting psychiatric evaluation. States he is out of his medications and does not have an appointment until Tuesday. He denies suicidal or homicidal ideations. No depression. Does admit to some auditory hallucinations with paranoid thoughts about his mom. Patient also reports to left lower quadrant groin pain and is concerned for hernia. Denies any changes in his bowel or bladder habits. Admits that hernia is reducible. Patient has a flat affect and therefore history is difficult to obtain - Related Data Home Medications Medication Instructions Recorded Confirmed ARIPiprazole [Abilify] 50 mg INJ QMONTH 01/13/15 01/13/15 Zolpidem Tartrate [Ambien] 5 mg PO HS 01/13/15 01/13/15 clonazePAM [KlonoPIN] 1 mg PO BID 01/13/15 01/13/15 Previous Rx's Medication Instructions Recorded Ibuprofen [Motrin] 400 mg PO Q6HR PRN #20 tab 09/20/22 Penicillin V Potassium [Pen Vee K] 500 mg PO QID 7 Days #28 tablet 09/20/22 Ketotifen 0.025% Ophth Soln 1 drop BOTH EYES BID #5 ml 09/21/22 [Zaditor] Nicotine Gum (Polacrilex) 2 mg BUCCAL Q2H #100 piece gum 09/21/22 [Nicorette] Famotidine [Pepcid] 10 mg PO DAILY 7 Days #7 tab 09/23/22 Hydrocortisone [Anusol-Hc] 1 applic RECTAL TID #30 gm 10/30/22 Allergies Allergy/AdvReac Type Severity Reaction Status Date / Time tomato Allergy Unknown Verified 12/20/22 22:22 aripiprazole [From Abilify] AdvReac Unknown Verified 12/20/22 22:22 haloperidol [From Haldol] AdvReac Unknown Verified 12/20/22 22:22 paliperidone [From Invega] AdvReac Unknown Verified 12/20/22 22:22 Review of Systems ROS Statement: Those systems with pertinent positive or pertinent negative responses have been documented in the HPI. ROS Other: All systems not noted in ROS Statement are negative. Past Medical History Past Medical History: Asthma, GERD/Reflux, Hypertension Additional Past Medical History / Comment(s): depression, former alcoholic History of Any Multi-Drug Resistant Organisms: None Reported Past Surgical History: Orthopedic Surgery Additional Past Surgical History / Comment(s): left hand Past Psychological History: Anxiety, Depression, Schizoaffective Disorder, Schizophrenia Smoking Status: Current some day smoker Past Alcohol Use History: Occasional Past Drug Use History: Marijuana, Prescription Drug Abuse General Exam Limitations: no limitations General appearance: alert, in no apparent distress Head exam: Present: atraumatic, normocephalic, normal inspection Eye exam: Present: normal appearance, PERRL, EOMI. Absent: scleral icterus, conjunctival injection, periorbital swelling ENT exam: Present: normal exam, mucous membranes moist Neck exam: Present: normal inspection. Absent: tenderness, meningismus, lymphadenopathy Respiratory exam: Present: normal lung sounds bilaterally. Absent: respiratory distress, wheezes, rales, rhonchi, stridor Cardiovascular Exam: Present: regular rate, normal rhythm, normal heart sounds. Absent: systolic murmur, diastolic murmur, rubs, gallop, clicks GI/Abdominal exam: Present: soft, normal bowel sounds. Absent: distended, tenderness, guarding, rebound, rigid Extremities exam: Present: normal inspection, full ROM, normal capillary refill. Absent: tenderness, pedal edema, joint swelling, calf tenderness Back exam: Present: normal inspection Neurological exam: Present: alert, oriented X3, CN II-XII intact Psychiatric exam: Present: other (Erratic behavior. Patient is angry, demanding) Skin exam: Present: warm, dry, intact, normal color. Absent: rash Course Vital Signs 12/20/22 22:14 Temperature 99.0 F Pulse Rate 97 Respiratory 18 Rate Blood Pressure 133/84 O2 Sat by Pulse 98 Oximetry Medical Decision Making - Medical Decision Making Was pt. sent in by a medical professional or institution (, ANGEL, ANODIC OPERATOR, urgent care, hospital, or prison...) When possible be specific @ -No Did you speak to anyone other than the patient for history (EMS, parent, family, police, friend...)? What history was obtained from this source @ -No Did you review nursing and triage notes (agree or disagree)? Why? @ -I reviewed and agree with nursing and triage notes Were old charts reviewed (outside hosp., previous admission, EMS record, old EKG, old radiological studies, urgent care reports/EKG's, prison records)? Report findings @ -I reviewed patient's recent ER visits as he has had several visits for similar complaints Differential Diagnosis (chest pain, altered mental status, abdominal pain women, abdominal pain men, vaginal bleeding, weakness, fever, dyspnea, syncope, headache, dizziness, GI bleed, back pain, seizure, CVA, palpatations, mental health, musculoskeletal)? @ -Differential Mental Health Depression, anxiety, bipolar, psychosis, schizophrenia, borderline personality, situational depression, adjustment disorder, behavioral disorder, brain tumor, malingering, substance abuse, encephalopathy, medication reaction, dementia, hypothyroidism, degenerative neurologic disorder, lupus.... This is not meant to be all-inclusive list EKG interpreted by me (3pts min.). @ -Not done X-rays interpreted by me (1pt min.). @ -None done CT interpreted by me (1pt min.). @ -None done U/S interpreted by me (1pt. min.). @ -None done What testing was considered but not performed or refused? (CT, X-rays, U/S, labs)? Why? @ -None What meds were considered but not given or refused? Why? @ -None Did you discuss the management of the patient with other professionals (professionals i.e. , PA, ANODIC OPERATOR, lab, RT, psych nurse, transition social worker, healthcare economics manager, teacher, asset protection officer, case managers)? Give summary @ -Spoke with the EPS nurse several times about the patient's behavior Was smoking cessation discussed for >3mins.? @ -No Was critical care preformed (if so, how long)? @ -No Were there social determinants of health that impacted care today? How? (Homelessness, low income, unemployed, alcoholism, drug addiction, transportation, low edu. Level, literacy, decrease access to med. care, senior care, rehab)? @ -Patient reports he is homeless Was there de-escalation of care discussed even if they declined (Discuss DNR or withdrawal of care, Hospice)? DNR status @ -No What co-morbidities impacted this encounter? (DM, HTN, Smoking, COPD, CAD, Cancer, CVA, ARF, Chemo, Hep., AIDS, mental health diagnosis, sleep apnea, morbid obesity)? @ -None Was patient admitted / discharged? Hospital course, mention meds given and route, prescriptions, significant lab abnormalities, going to OR and other pertinent info. @ - Upon arrival patient was placed in room 16. A thorough history and physical exam was performed. I did offer an evaluation by EPS for which the patient was agreeable however when the nurse did arrive, he refused to speak with her. Patient was evaluated for hernia. Afterwards he began having several additional requests. Requested evaluation for brain aneurysm and hemorrhoids. Discussed with the patient that we would not continue to entertain new chief complaints as the patient stated "I will continue to complain of new things so you can't kick me out". EPS does make a safety plan with the patient. He does receive refills of his medications on the . Patient will be discharged home at this time. Instructed to follow-up his primary care doctor for further treatment. Patient refuses to leave and therefore requires police escort. Patient discharged in stable condition Undiagnosed new problem with uncertain prognosis? @ -No Drug Therapy requiring intensive monitoring for toxicity (Heparin, Nitro, Insulin, Cardizem)? @ -No Were any procedures done? @ -No Diagnosis/symptom? @ -Acute aggressive behavior, reported auditory hallucinations Acute, or Chronic, or Acute on Chronic? @ -Acute, recurrent Uncomplicated (without systemic symptoms) or Complicated (systemic symptoms)? @ -Complicated Side effects of treatment? @ -No Exacerbation, Progression, or Severe Exacerbation? @ -No Poses a threat to life or bodily function? How? (Chest pain, [place], [place], pneumonia, PE, COPD, DKA, ARF, appy, cholecystitis, CVA, Diverticulitis, Homicidal, Suicidal, threat to staff... and all critical care pts) @ -No Disposition Clinical Impression: Depression, Homelessness Disposition: HOME SELF-CARE Condition: Stable Instructions (If sedation given, give patient instructions): Inguinal Hernia (ED) Additional Instructions: Please follow-up with a surgeon for evaluation of your hernia Is patient prescribed a controlled substance at d/c from ED?: No Referrals: Fabian Arroyo MD [Primary Care Provider] - 1-2 days Tone Espinoza MD [STAFF PHYSICIAN] - 1-2 days Time of Disposition: 01:09
== END 2022-12-21 01:57 | disposition home or self-care (01) ==
LOC: EC 22:02
DX: F32.A Depression, unspecified (principal); R45.6 Violent behavior; R44.0 Auditory hallucinations; Z59.00 Homelessness unspecified; J45.909 Unspecified asthma, uncomplicated; K21.9 Gastro-esophageal reflux disease without esophagitis; I10 Essential (primary) hypertension; F41.9 Anxiety disorder, unspecified; F17.200 Nicotine dependence, unspecified, uncomplicated; F12.90 Cannabis use, unspecified, uncomplicated; Z88.8 Allergy status to other drugs, medicaments and biological substances; Z91.018 Allergy to other foods; Z79.899 Other long term (current) drug therapy
CPT/HCPCS: 82075; 99285